=== PATIENT | male | born 1965 | race Caucasian/White ===

== ENCOUNTER 2019-08-31 20:11 | Emergency (ER) | payer MEDICAID, SELFPAY ==
[2019-08-31 20:15] VITALS: BP 153/84; PULSE 57; RESP 16; TEMP 36.5; O2SAT 99
--- NOTE | 2019-08-31 20:24 | W.ED.GENAD ---
Discharge Plan Disposition Patient Disposition: HOME Condition: Good Discharge Details Chief Complaint: Abd Prob Clinical Impression: Epigastric pain Primary Care Provider: Gualberto Dorantes ED Provider: Gene Chung [place] Meds and New Rx's Prescriptions: New lansoprazole 30 mg tablet,disintegrat, delay rel 30 mg PO DAILY Qty: 30 RF: 0 sucralfate [Carafate] 100 mg/mL suspension 10 ml PO QID Qty: 420 RF: 0 Discontinued Helen-Albia Original 325-1,916-1,000 mg Tablet, Effervescent 1 tab PO RF: 0 omeprazole 20 mg Tablet,Delayed Release (Dr/Ec) 20 mg PO PRN PRNRF: 0 Discharge Instructions Instructions: Epigastric Pain (ED) Additional Instructions: Reduce alcohol consumption as this may have something to do with your pain which is likely related to acid type disease. Please take the lansoprazole once a day. Sucralfate is 4 times a day. Follow-up with primary care in 1 to 2 weeks for reevaluation. Return to the emergency department if you develop worsening pain, vomiting, black/bloody stool, chest pain, shortness of breath, fainting. Referrals: Gualberto Dorantes [Primary Care Provider] - Medical Decision Making Patient presenting with constant epigastric abdominal pain all day today. Denies having chest pain. EKG from triage is normal. He drinks fair amount of alcohol on a daily basis and has been treated for reflux/gastritis previously. He has been on omeprazole that he restarted a couple weeks ago. Still most likely acid related. Doubt pancreatitis, hepatitis, cholecystitis. He has a benign abdomen. Will obtain labs and give IV Pepcid, p.o. Carafate, GI cocktail. Patient's laboratory studies are unremarkable. CBC is normal. Liver function normal. Lipase normal. Troponin normal. Potassium only little low at 3.4. Patient's pain resolved with the Pepcid, Carafate, GI cocktail. Discussed cutting back on his alcohol consumption. Will increase omeprazole to 40 mg a day and add Carafate. We will have him follow-up with primary care in 1 to 2 weeks. Return to ED for worsening pain, vomiting, black or bloody stool, chest pain, shortness of breath. Lab Data Lab results reviewed: Yes I reviewed the patient's lab results. ECG Data Attestation: I personally reviewed and interpreted this ECG (s) as follows: Prior ECG tracings: not available for review Interpretation: Sinus bradycardia at 58. Normal axis and intervals. No acute ST changes. HPI General Mode of arrival: ambulatory. Date/Time Provider Initiated Documentation: 08/31/19 20:23. Limitations to Documentation: no limitations. Information obtained by: patient and RN notes reviewed. HPI Narrative: Patient presents to ED with complaint of epigastric abdominal pain all day today. It seems worse tonight. He has had episodes like this previously and has been on omeprazole. He stopped it but restarted a couple weeks ago when he had another episode of epigastric discomfort. He states this feels different because it is worse and not going away. He has tried Helen-Albia as well as drinking some baking soda and water. He denies nausea/vomiting. There is no radiation of pain. There is no change in stool. He does admit to daily alcohol use. He does not smoke, use nonsteroidals or drink a lot of caffeine. Related Data Home Medications Medication Instructions Recorded Confirmed lansoprazole 30 mg PO DAILY #30 tab 08/31/19 sucralfate [Carafate] 10 ml PO QID #420 ml 08/31/19 Previous Rx's Medication Instructions Recorded lansoprazole 30 mg PO DAILY #30 tab 08/31/19 sucralfate [Carafate] 10 ml PO QID #420 ml 08/31/19 Allergies Allergy/AdvReac Type Severity Reaction Status Date / Time No Known Allergies Allergy Unverified 04/28/17 12:57 General Stated Complaint: Abd Prob JACQUELYN: 3 Review of Systems Review of Systems Narrative: As documented in HPI otherwise negative as below. Const: no fever, chills, weakness Resp: no cough, SOB, pleuritic pain CV: no CP, diaphoresis, edema, syncope GI: abdominal pain; no nausea, vomiting, diarrhea Neuro: no headache, numbness, focal weakness, confusion [facility] Medical History GERD (gastroesophageal reflux disease) (Chronic) Surgical History S/P appendectomy (Acute) Social History Smoking/Tobacco Use Status: Never Alcohol Intake: current Alcohol Intake frequency: 3 or more drinks per day Alcohol type: wine Drug use: Never Do you feel safe in your relationship?: Yes Exam Narrative Exam Narrative: Vitals: Afebrile. Mildly hypertensive otherwise normal vitals. Const: WDWN male in NAD. HEENT: NC/AT. Normal facial exam. Eyes: Normal conjunctiva and sclera. Neck: Supple. Trachea midline. Lungs: Normal respiratory effort. Lungs are clear. Cor: RRR without murmur/gallop. Good radial pulses. GI: Soft. NT/ND. No guarding or rebound. Neuro: A+O x 3. CN grossly in tact. Good strength and no focal deficit. Ext: No C/C/E. No deformity or tenderness. Skin: Warm and dry without rash. Course Vital Signs Vital signs: Vital Signs Temperature 97.7 F 08/31/19 20:15 Pulse 57 L 08/31/19 20:15 Respiratory Rate 16 08/31/19 20:15 Blood Pressure 153/84 H 08/31/19 20:15 Pulse Oximetry 99 08/31/19 20:15 Temperature 97.7 F 08/31/19 20:15 Temperature Source Tympanic 08/31/19 20:15 Pulse 57 L 08/31/19 20:15 Respiratory Rate 16 08/31/19 20:15 Blood Pressure 153/84 H 08/31/19 20:15 Blood Pressure Position Sitting 08/31/19 20:15 Pulse Oximetry 99 08/31/19 20:15 Oxygen Delivery Method Room Air 08/31/19 20:15 Oxygen Flow Rate 0 08/31/19 20:15 Pain Level 5 08/31/19 20:15
[2019-08-31] MEDS: FAMOTIDINE 20 MG/50 ML BAG 100 MG IVPB (20:56)
[2019-08-31] MEDS: Sucralfate 1 GM TAB PO (20:56)
[2019-08-31 20:58] LABS: Abs Immature Grans 0.01 k/cumm (0.0-0.09); Absolute Basophil Count 0.02 k/cumm (0.0-0.2); Absolute Eosinophil Count 0.14 k/cumm (0.0-0.7); Absolute Lymphocyte Count 1.42 k/cumm (1.2-3.4); Absolute Monocyte Count 0.68 k/cumm (0.11-0.7); Absolute Neutrophil Count 6.66 k/cumm (1.2-6.7); Basophils % 0.2; Eosinophils % 1.6; HGB 15.2 g/dL (13.5-17.5); Immature Grans % 0.1; Lymphocytes % 15.9; Mean Corp. HGB Concentration 34.5 g/dL (32.0-36.0); Mean Corpuscular Hemoglobin 31.7 pg (27.0-33.0); Mean Corpuscular Volume 91.9 fL (80-95); Mean Platelet Volume 10.5 fL (8.0-11.0); Monocytes % 7.6; Neutrophils % 74.6; Platelet Count 215 x1000/uL (130-400); RBC 4.79 m/cumm (4.50-6.00); RBC Distribution Width 12.5 % (11.8-14.1); White Blood Cell Count 8.93 k/cumm (4.4-10.8)
[2019-08-31 21:43] LABS: ALT 23 U/L (16-63); AST 13 U/L (15-37); Albumin 3.7 g/dL (3.4-5.0); Alkaline Phosphatase 48 U/L (46-116); Anion Gap 7.5 mmol/L (3-11); BUN 20 mg/dL (7-18); Bilirubin, Total 0.7 mg/dL (0.2-1.0); CO2 31.5 mmol/L (21.0-32.0); Calcium 8.4 mg/dL (8.5-10.1); Chloride 106 mmol/L (98-107); Glucose 93 mg/dL (70-100); Lipase 115 U/L (73-393); Magnesium 1.9 mg/dL (1.8-2.4); Potassium 3.4 mmol/L (3.5-5.1); Sodium 145 mmol/L (136-145); Total Protein 6.9 g/dL (6.4-8.2); Troponin I < 0.05 ng/mL (0.00-0.06)
== END 2019-08-31 22:11 | disposition home or self-care (01) ==
PROVIDERS: Emergency Provider Emergency Medicine; PCP Specialist/Technologist Athletic Trainer
DX: R10.13 Epigastric pain (principal)
CPT/HCPCS: 36415; 80053; 83690; 93005; 96365; 99284; 83735; 84484; 85025; 93010

== ENCOUNTER 2019-09-10 11:49 | Emergency (ER) | payer MEDICAID, SELFPAY ==
[2019-09-10 11:53] VITALS: BP 147/88; PULSE 59; RESP 18; TEMP 36.5; O2SAT 99
--- NOTE | 2019-09-10 12:53 | ED.GENADUL_ITS ---
Discharge Plan Disposition Patient Disposition: HOME Condition: Stable Discharge Details Chief Complaint: Abd Prob Clinical Impression: Epigastric pain Primary Care Provider: Gualberto Dorantes ED Provider: Bethany Delatorre Home Meds and New Rx's Prescriptions: New Lidocaine Viscous 2 % solution 1 applic MM BID PRN (Reason: pain) Qty: 15 RF: 0 Continued lansoprazole 30 mg tablet,disintegrat, delay rel 30 mg PO DAILY Qty: 30 RF: 0 sucralfate [Carafate] 100 mg/mL suspension 10 ml PO QID Qty: 420 RF: 0 Discharge Instructions Instructions: Diet for Stomach Ulcers and Gastritis (ED), Epigastric Pain (ED) Additional Instructions: Continue to follow dietary recommendations, test's recommendations for dietary advancement. Please keep upcoming appointment with general surgery, call on Thursday to see if this may be moved up as some possible. Please continue the medications. Please try to avoid offending agents to help prevent recurrence of your pains. I have prescribed a one-time dose of viscous lidocaine to use if you have severe symptoms once again. You may use this with Mylanta. You may not use this more than once a day. If you develop chest pain, shortness of breath, difficulty breathing, fevers or other new/worsening symptoms please seek care urgently once again. Referrals: Gualberto Dorantes [Primary Care Provider] - Discharge Data Discharge Date/Time-TO BE ENTERED AT DEPARTURE: 09/10/19 13:27 Medical Decision Making Patient is a 53-year-old male with history of GERD presents today with chief complaint of epigastric pain. Patient was seen here [phone] for the exact same pain. Was evaluated by Dr. Chung and was determined to have epigastric discomfort, thought to be associated with dietary intake of alcohol and black coffee on empty stomach. Patient reports that he is been following the brat diet since being discharged from here. States that largely, his pain completely subsided. However, he was with friends last night had multiple glasses of wine woke up this morning had black coffee. He reports this greatly exacerbated his discomfort. He has been experiencing 5 out of 10 epigastric pain since that time. Is requesting a GI cocktail. Reports that he had this when he was here last and has had complete resolution of the symptoms. Is also requesting if to have viscous lidocaine prescribed as he is able to purchase the Mylanta but not the viscous lidocaine. He does seem like a reasonable gentleman will use this as prescribed. He will stick with the dietary recommendations. We did discuss that he may advance his diet away from just the solitary BRAT diet that he has been following but that should not include greatly exacerbating substances such as black coffee or alcohol. On exam, patient is resting comfortably. No peritoneal findings on exam. To the palpation of the epigastric area actually improves his symptoms. He is not tachycardic, afebrile. He does not sound to have any evidence of cardiovascular sources is not exertional at all and was purely brought on by drinking coffee while driving this morning. This does seem to be an exacerbation of his underlying GERD. We will give his GI cocktail as requested. I will prescribe 1 other dose of viscous lidocaine that he may use with Mylanta if needed. Patient Jd has a referral to general surgery, he will call them Thursday to try to schedule appointment as soon as possible. We discussed new/worsening symptoms when he should seek care urgently once again. All his questions and concerns were addressed and he is in agreement with this plan peer HPI General Mode of arrival: ambulatory . Date/Time Provider Initiated Documentation: 09/10/19 12:26 . Limitations to Documentation: no limitations . Information obtained by: patient and RN notes reviewed . History of Present Illness 53 year old M presents to the emergency department with the chief complaint of Epigastric pain, described as moderate and similar to prior episodes, with intensity rated at 5. Quality is described as burning, and is localized to the abdomen. Patient reports no radiation. Patient started experiencing this hour(s) and it has been constant. No relieving factors improve symptom(s), Eating worsens symptoms (Drink wine last night which initially exacerbated, coffee this morning increased) . Patient notes no other symptoms.. Patient did receive the following treatments prior to arrival, none Related Data Home Medications Medication Instructions Recorded Confirmed lansoprazole 30 mg PO DAILY #30 tab 08/31/19 09/10/19 sucralfate [Carafate] 10 ml PO QID #420 ml 08/31/19 09/10/19 lidocaine HCl [Lidocaine Viscous] 1 applic MM BID PRN #15 ml 09/10/19 Previous Rx's Medication Instructions Recorded lansoprazole 30 mg PO DAILY #30 tab 08/31/19 sucralfate [Carafate] 10 ml PO QID #420 ml 08/31/19 lidocaine HCl [Lidocaine Viscous] 1 applic MM BID PRN #15 ml 09/10/19 Allergies Allergy/AdvReac Type Severity Reaction Status Date / Time No Known Allergies Allergy Unverified 04/28/17 12:57 General Stated Complaint: Abd Prob JACQUELYN: 4 Review of Systems Constitutional Constitutional: Reports as per HPI, Denies chills, Denies fatigue, Denies fever(s) and Denies headache(s) ENT Ears, Nose, Mouth, and Throat: Denies headache(s) Cardiovascular Cardiovascular: Reports as per HPI, Denies chest pain and Denies dyspnea Respiratory Respiratory: Reports as per HPI, Denies cough and Denies dyspnea Gastrointestinal Gastrointestinal: Reports as per HPI Genitourinary Genitourinary: Denies system reviewed and no additional complaints, except as docu (patient denies any change in urinary habits) Musculoskeletal Musculoskeletal: Reports as per HPI and Denies back pain Integumentary/Breasts Skin/Breast: Reports as per HPI and Denies rash Neurologic Neurologic: Reports as per HPI and Denies headache(s) Endocrine Endocrine: Denies fatigue [facility] Medical History GERD (gastroesophageal reflux disease) (Chronic) Surgical History S/P appendectomy (Acute) Social History Smoking/Tobacco Use Status: Never Alcohol Intake: current Alcohol Intake frequency: 3 or more drinks per day Alcohol type: wine Drug use: Never Do you feel safe in your relationship?: Yes Exam Const General: cooperative, healthy appearing, comfortable, no acute distress and well developed Nutritional Appearance: average body habitus and well nourished Orientation: alert and awake [facility] Head: normal to inspection Mouth: moist mucous membranes Resp Effort & Inspection: normal respiratory effort, able to speak in complete sentences and no respiratory distress Auscultation: clear to auscultation bilaterally, no rales, no rhonchi and no wheezes Cardio Rate: regular rate Rhythm: regular rhythm Heart Sounds: S1 normal and S2 normal GI Inspection: normal to inspection, no edema and non-distended Palpation: soft, no hepatosplenomegaly, not firm, no guarding, not rigid and nontender (Palpation over the epigastric region improves his discomfort) Percussion: normal to percussion Auscultation: normal bowel sounds Back/Spine/Pelvis Back: no CVA tenderness Skin General skin exam: no rashes or lesions noted Trauma: no lacerations or abrasions Neuro General: alert and awake Cognition: normal cognition Speech: speech normal Gait: normal gait Psych Appearance: grossly normal and well kempt Mental Status: mental status grossly normal Speech and Movement: speech and movement normal Course Vital Signs Vital signs: Vital Signs Temperature 36.5 C 09/10/19 11:53 Pulse 59 L 09/10/19 11:53 Respiratory Rate 18 09/10/19 11:53 Blood Pressure 147/88 H 09/10/19 11:53 Pulse Oximetry 99 09/10/19 11:53 Temperature 36.5 C 09/10/19 11:53 Temperature Source Skin 09/10/19 11:53 Pulse 59 L 09/10/19 11:53 Respiratory Rate 18 09/10/19 11:53 Respiratory Effort Non-Labored 09/10/19 11:58 Blood Pressure 147/88 H 09/10/19 11:53 Blood Pressure Position Sitting 09/10/19 11:53 Pulse Oximetry 99 09/10/19 11:53 Oxygen Delivery Method Room Air 09/10/19 11:53 Oxygen Flow Rate 0 09/10/19 11:53 Pain Level 5 09/10/19 11:53
== END 2019-09-10 13:27 | disposition home or self-care (01) ==
PROVIDERS: Emergency Provider Physician Assistant; PCP Specialist/Technologist Athletic Trainer
DX: R10.13 Epigastric pain (principal)
CPT/HCPCS: 99283

== ENCOUNTER 2019-09-12 21:43 | Emergency (ER) | payer MEDICAID, SELFPAY ==
[2019-09-12] VITALS (14 sets, daily range): BP systolic 114–144; BP diastolic 84–91; PULSE 53–60; RESP 13–23; TEMP 36.6; O2SAT 95–99
--- NOTE | 2019-09-12 22:27 | ED.GENADUL_ITS ---
Discharge Plan Disposition Patient Disposition: HOME Condition: Stable Discharge Details Chief Complaint: Abd Prob Clinical Impression: Epigastric abdominal pain Primary Care Provider: Gualberto Dorantes ED Provider: Syeda Morton Home Meds and New Rx's Prescriptions: Continued lansoprazole 30 mg tablet,disintegrat, delay rel 30 mg PO DAILY Qty: 30 RF: 0 sucralfate [Carafate] 100 mg/mL suspension 10 ml PO QID Qty: 420 RF: 0 Discontinued Lidocaine Viscous 2 % solution 1 applic MM BID PRN (Reason: pain) Qty: 15 RF: 0 Discharge Instructions Instructions: Epigastric Pain (ED) Additional Instructions: Continue your Prevacid as directed. Use the GI cocktail as needed and directed. Call general surgery tomorrow morning to schedule follow-up for reevaluation. Return immediately to the emergency department if you develop any worsening or new concerning symptoms such as fever, chest pain, shortness of breath, dizziness, vomiting or worsening pain. Referrals: Alethea Ohara MD [ [facility] STAFF PHYSICIAN] - Alice Aguirre MD [ [facility] STAFF PHYSICIAN] - Karyn Chapa DO [OSTEOPATHIC DOCTOR] - Discharge Data Discharge Physician: Syeda Morton Medical Decision Making 53yo M with a history of GERD for the past 3 years on Carafate and Prevacid who presents with dull aching epigastric pain since this afternoon. Denies fever, cough, chest pain, sob, vomiting, dizziness. He was seen here last week for the same complaint and had lab work which was unremarkable and then returned here 2 days ago requesting a GI cocktail. He states he has plans to follow-up with surgery for EGD. He states he came here tonight due to no relief with 1 dose of lidocaine viscous given here 2 days ago and is requesting a GI cocktail and a dose of Pepcid and any assistance with obtaining an EGD as soon as possible. He is declining any lab work or additional work-up. His presentation does not appear consistent with cardiac as he has had ongoing epigastric pain for the past 3 years that is worse with food, coffee and alcohol and better with certain positions. Vitals within normal limits. An EKG was done on arrival and notes a rate of 53, sinus with no acute ST-T wave ischemic changes. We will give him 1 dose of GI cocktail and Pepcid and reassess. 2315 --patient states he feels better and would like to go home to sleep. He again was offered any further work-up but is declining. He was placed on care management list to help arrange for a follow-up appointment with surgery to help with consultation. He is advised to avoid triggers for his epigastric pain including avoiding alcohol, caffeine, spicy foods, peppermint and chocolate. He is advised to return here with any concerns. Medical Records Medical records reviewed: Yes I reviewed the patient's medical records. ECG Data Attestation: I personally reviewed and interpreted this ECG (s) as follows: Interpretation: Rate of 53, sinus, no acute ST elevation or depression. MI 148. QTc 402. QRS 96. HPI General Mode of arrival: ambulatory . Date/Time Provider Initiated Documentation: 09/12/19 21:47 . Limitations to Documentation: no limitations . Information obtained by: patient . HPI Narrative: Pt is a 53yo M with a history of GERD on Carafate and Prevacid who presents to the ED w/ a complaint of constant dull aching epigastric pain since this afternoon. Patient states he has had this pain off and on for the past 3 years which is worse with coffee, alcohol and certain foods. He states he has taken Prilosec in the past with relief. He states he was seen here on 08/31 for similar presentation and had lab work-up which was negative and he was diagnosed with a likely ulcer and advised to follow-up with surgery. Patient states he has seen his primary care doctor and is planning to see surgery with plans for an EGD soon. He was seen here 2 days ago with worsening of his symptoms after drinking alcohol the night before and coffee on an empty stomach and was only requesting a GI cocktail at at that time. He received this medication and felt much better and went home. He states he ran out of his Carafate and then developed pain today and denied any relief with the lidocaine dose he was given. He states he also took an old dose of Mylanta. He states he would just like a GI cocktail and a dose of Pepcid here today. He is declining any further work-up or lab work or imaging. He would also like assistance with help with obtaining an EGD soon as possible. He denies fever, cough, chest pain, shortness of breath, vomiting, dizziness, leg pain or swelling, recent travel or recent surgery. Related Data Home Medications Medication Instructions Recorded Confirmed lansoprazole 30 mg PO DAILY #30 tab 08/31/19 09/12/19 sucralfate [Carafate] 10 ml PO QID #420 ml 09/12/19 Previous Rx's Medication Instructions Recorded lansoprazole 30 mg PO DAILY #30 tab 08/31/19 sucralfate [Carafate] 10 ml PO QID #420 ml 09/12/19 Allergies Allergy/AdvReac Type Severity Reaction Status Date / Time No Known Allergies Allergy Unverified 09/12/19 21:57 General Stated Complaint: Abd Prob JACQUELYN: 2 Review of Systems Review of Systems ROS Unobtainable: All systems reviewed & are unremarkable except as noted in HPI and below Constitutional Constitutional: Reports as per HPI, Denies chills and Denies fever(s) Eyes Eyes: Denies blurry vision ENT Ears, Nose, Mouth, and Throat: Denies dizziness, Denies sore throat and Denies throat swelling Cardiovascular Cardiovascular: Denies chest pain and Denies dyspnea Respiratory Respiratory: Denies cough and Denies dyspnea Gastrointestinal Gastrointestinal: Reports abdominal pain, Denies diarrhea and Denies vomiting Genitourinary Genitourinary: Denies hematuria and Denies dysuria Musculoskeletal Musculoskeletal: Denies back pain and Denies numbness Integumentary/Breasts Skin/Breast: Denies lesions and Denies rash Neurologic Neurologic: Denies dizziness, Denies focal weakness and Denies numbness Allergic/Immunologic Allergic/Immunologic: Denies throat swelling [facility] Medical History GERD (gastroesophageal reflux disease) (Chronic) Surgical History S/P appendectomy (Acute) Social History Smoking/Tobacco Use Status: Never Alcohol Intake: current Alcohol Intake frequency: 3 or more drinks per day Alcohol type: wine Drug use: Never Details: pt states that he has not had any alcohol in the last in the last 3 days Do you feel safe in your relationship?: Yes Exam Const General: cooperative, healthy appearing and no acute distress HENWI Head: normal to inspection Face and sinus: normal facial exam Eyes General: appearance normal, both eyes and all related structures EOM: EOM intact bilaterally Neck Neck: normal visual inspection and No submandibular swelling Lymphatic: no lymphadenopathy noted Chest Chest: normal inspection of the chest and no tenderness Resp Effort & Inspection: normal respiratory effort and able to speak in complete sentences Auscultation: clear to auscultation bilaterally Cardio Rate: regular rate Rhythm: regular rhythm GI Inspection: normal to inspection Palpation: soft, not firm, not rigid and tender (very minimal epigastric) Auscultation: normal bowel sounds Back/Spine/Pelvis Pelvis: no pain with anterior-posterior compression Skin General skin exam: no rashes or lesions noted Neuro General: alert, awake and oriented x3 Cognition: normal cognition Speech: speech normal Motor: muscle tone normal throughout Sensory Exam: no sensory deficits noted Extrem General: normal to inspection, full ROM, normal capillary refill, no calf tenderness bilaterally and no edema Psych Appearance: grossly normal Mental Status: mental status grossly normal Speech and Movement: speech and movement normal Affect: normal affect Course Vital Signs Vital signs: Vital Signs Temperature 97.9 F 09/12/19 21:50 Pulse 60 09/12/19 21:50 Respiratory Rate 16 09/12/19 21:50 Blood Pressure 114/91 H 09/12/19 21:50 Pulse Oximetry 98 09/12/19 21:50 Temperature 97.9 F 09/12/19 21:50 Temperature Source Temporal Artery Scan 09/12/19 21:50 Pulse 60 09/12/19 21:50 Respiratory Rate 16 09/12/19 21:50 Respiratory Effort 09/12/19 22:01 Blood Pressure 114/91 H 09/12/19 21:50 Pulse Oximetry 98 09/12/19 21:50 Oxygen Delivery Method Room Air 09/12/19 21:50 Oxygen Flow Rate 0 09/12/19 21:50 Pain Level 6 09/12/19 21:50
[2019-09-12] MEDS: FAMOTIDINE 20 MG/50 ML BAG 200 MG IVPB (22:35)
--- NOTE | 2019-09-13 07:46 | NUR.NOTE ---
Nursing Note: referral fax to general surgery.
== END 2019-09-12 23:30 | disposition home or self-care (01) ==
PROVIDERS: Emergency Provider Physician Assistant; PCP Specialist/Technologist Athletic Trainer
DX: R10.13 Epigastric pain (principal)
CPT/HCPCS: 93005; 96374; 99284; 93010

== ENCOUNTER 2019-09-16 11:12 | Day surgery (SDC) | payer MEDICAID, SELFPAY ==
[2019-09-16 11:29] VITALS: BP 118/76; PULSE 61; RESP 17; TEMP 36.4; O2SAT 98
[2019-09-16] MEDS: Lactated Ringers 1,000 ML 80 ML IV (12:01)
--- NOTE | 2019-09-16 12:09 | W.PM.DSUDISC ---
Discharge Plan Disposition Patient Disposition: HOME Condition: Good Discharge Details Reason For Visit: EPIGASTRIC PAIN Attending Provider: Alethea Ohara Primary Care Provider: Gualberto Dorantes Home Meds and New Rx's Prescriptions: No Action lansoprazole 30 mg tablet,disintegrat, delay rel 30 mg PO DAILY Qty: 30 RF: 0 sucralfate [Carafate] 100 mg/mL suspension 10 ml PO QID Qty: 420 RF: 0 Discharge Instructions Additional Instructions: Findings: Your EGD and colonoscopy were normal. My office will contact you with routine biopsy results. Follow up: My office will schedule a gallbladder ultrasound. Please call if you develop: fevers >101.5 Nausea or Vomiting Abdominal pain that is not transient DAY SURGERY UNIT POST COLONOSCOPY INSTRUCTIONS 1. Because there will be medication in your system for the next 24 hours, you may feel a little sleepy. Your coordination will be affected. Therefore: a. Do not drive or operate dangerous equipment for 24 hours. b. Do not drink alcohol beverages for 24 hours (not even beer). c. Plan to go home and rest for the day. 2. Generally there are no restrictions on your activity after a day or so has gone by, but you may feel a bit fatigued for a few days. 3 After you arrive home you may have a light meal and return to a normal diet as you can tolerate it without feeling sick to your stomach. 4. After surgery, you may feel pain or discomfort. This should be only transient, but if it persists please contact your doctor. 5. If there are any questions regarding the findings of your procedure, please feel free to contact your doctor. 6. If you are unable to contact your doctor with a problem, contact the hospital at [phone]. 7. Continue all your regular medications unless directed otherwise. I understand the above instructions and have no questions. Signature of Patient or Responsible Adult Escort Date/Time Name of Responsible Adult Escort Signature of Nurse Date/Time Activity:: Activity as Tolerated Diet:: As Tolerated Discharge Orders Discharge Orders: Discharge Order (Routine); Ordered 09/16/19 Ordered By: Alethea Ohara DS: Diagnosis Discharge Diagnosis (1) Normal colonoscopy: Status: Acute
--- NOTE | 2019-09-16 12:25 | STOM_PTH ---
PATIENT: Suraj Beck LOC: [facility] U#:[id number] AGE/SX: 53/M ROOM: RE09/16/[address]: Alethea Ohara MD : 1965 BED: DIS: 09/16/2019 SPEC #: [id number] RECD: 09/16/19 17:56 STATUS: PITER REQ #: [id number] NIA: 09/16/19 12:[address]: Alethea Ohara DEPT: Surgical Specimen RECD BY: Chiara Garrett ENTERED: 09/16/19 17:56 SP TYPE: STOMACH OTHR DR: Gualberto Dorantes Tissues: 1 - BIOPSY BOWEL 2 - STOMACH BIOPSY Procedures: GROSS AND MICRO LEVEL 4 Comments: [id number]
[2019-09-16 13:35] VITALS: BP 123/77; PULSE 58; RESP 16; TEMP 36; O2SAT 99
--- NOTE | 2019-09-21 06:49 | ENDO_ITS ---
REPORT OF OPERATIVE PROCEDURES DATE OF PROCEDURE September 16, 2019 PREOPERATIVE DIAGNOSES 1. Epigastric pain. 2. Colon screening. POSTOPERATIVE DIAGNOSES 1. Normal EGD. 2. Normal colon. PROCEDURES 1. EGD with biopsies. 2. Colonoscopy. SURGEON Alethea Ohara M.D. ANESTHESIA General. INDICATIONS This is a 53-year-old man who reports postprandial epigastric pain. He has resumed his proton pump in hibitor. He notes some variable benefit with a GI cocktail. He has not had a previous EGD or colonosc opy. He does not have any first-degree relatives with colon cancer. PROCEDURE DESCRIPTION He was placed in the left lateral decubitus position. Propofol was titrated to sedation. The scope wa s advanced into the esophagus under direct visualization and passed down into the stomach and the duo denum. There was no duodenitis or ulcers noted. Biopsies were taken from the second portion of the duodenum to evaluate for celiac disease. The stoma ch itself appeared normal, including on retroflexed view of the fundus and the lesser curvature. Newton om biopsies were taken from the gastric antrum to evaluate for H. pylori. The GE junction exhibited n o masses, Renee's, inflammation or strictures. The air was suctioned from the stomach and the scope withdrawn with no other esophageal lesions noted. Digital rectal examination revealed no abnormalities. The scope was advanced to the cecum without dif ficulty. The ileocecal valve and appendiceal orifice were clearly identified. His prep was excellent. The scope was slowly withdrawn with no abnormalities seen within the ascendin g, transverse, descending, sigmoid colon or rectum, including on retroflexed view. He tolerated the p rocedure well and was stable to Recovery. He will need a followup screening colonoscopy again in 10 years, or sooner if symptoms indicate. We w ill schedule a gallbladder ultrasound for further evaluation. CC: Gualberto Dorantes M.D.
== END 2019-09-16 14:04 | disposition home or self-care (01) ==
PROVIDERS: PCP Specialist/Technologist Athletic Trainer; Visit Provider Surgery
PROC: (CPT 43239; principal; 2019-09-16 11:15)
DX: Z12.11 Encounter for screening for malignant neoplasm of colon (principal); R10.13 Epigastric pain; K29.50 Unspecified chronic gastritis without bleeding; K21.9 Gastro-esophageal reflux disease without esophagitis
CPT/HCPCS: 43239; 45378; 88305

== ENCOUNTER 2019-09-21 00:39 | Outpatient (CLI) | payer MEDICAID, SELFPAY ==
--- NOTE | 2019-09-21 06:50 | DI.US_ITS ---
EXAM: US ABDOMEN CLINICAL HISTORY: RUQ ABD PAIN, R10.11 TECHNIQUE: Ultrasound performed using standard protocol. COMPARISON: No exams were available for comparison FINDINGS: The proximal aorta is not visualized. The mid and distal segments appear unremarkable. The vena cav a is intact. The liver is normal. The portal vein is intact. There is no evidence of a Sanchez's sig n. The gallbladder wall is 4.9 mm thick and an echogenic focus in the gallbladder would be consistent with a gallstone. There is no pericholecystic fluid. The common duct caliber is 5 mm. Limited visu alization of the pancreas is identified. There is no gross abnormality. There is mild splenomegaly. The kidneys are unremarkable. There is no evidence of free fluid. IMPRESSION: A large gallstone is identified in the gallbladder which is contracted. The gallbladder wall measurin g up to 4.9 mm. There are no acoustical findings to suggest acute cholecystitis.
== END 2019-09-21 00:59 ==
PROVIDERS: PCP Specialist/Technologist Athletic Trainer; Visit Provider Surgery
DX: R10.11 Right upper quadrant pain (principal); K80.70 Calculus of gallbladder and bile duct without cholecystitis without obstruction
CPT/HCPCS: 76700

== ENCOUNTER 2019-09-27 07:01 | Day surgery (SDC) | payer MEDICAID, SELFPAY ==
[2019-09-27] VITALS (7 sets, daily range): BP systolic 118–140; BP diastolic 71–90; PULSE 57–66; RESP 11–16; TEMP 36.2–36.5; O2SAT 96–100
[2019-09-27] MEDS: Lactated Ringers 1,000 ML 80 ML IV ×2 (08:06→10:23)
--- NOTE | 2019-09-27 09:04 | W.PM.DSUDISC ---
Discharge Plan Disposition Patient Disposition: HOME Condition: Good Discharge Details Reason For Visit: CHOLELITHIASIS Attending Provider: Alethea Ohara Primary Care Provider: Gualberto Dorantes Home Meds and New Rx's Prescriptions: New hydrocodone-acetaminophen 5-325 mg Tablet 1 - 2 tab PO Q6H PRN (Reason: Pain) Qty: 15 RF: 0 Discharge Instructions Additional Instructions: The top bandage can be removed tomorrow. The steri strips will usually stick for about a week. When the edges start to curl up, they can be removed. It is okay to shower tomorrow, the water can run over the steri strips Do not swim or soak in a tub for two weeks Call for any concerns including fever, increased pain, vomiting, incision redness or drainage. Do not lift more than 15 pounds for two weeks. Walking and stairs are fine. Do not drive if on narcotic pain meds or if limited by pain. May use Tylenol alternating with ibuprofen for pain control. Ice is also an option. The maximum dose for Tylenol is 4000 mg/day. May use ibuprofen 800 mg every 8 hours as needed. If concerned about constipation, you may use a stool softener or milk of magnesia. Referrals: Alethea Ohara MD [ [facility] STAFF PHYSICIAN] - (Return for a postop visit in 10-14 days) Activity:: Do not lift more than 15# Remove Dressings/Wound Care:: 24 hours Shower/Bathe:: 24 hours Diet:: Low fat for two weeks, then gradually resume a normal diet Discharge Orders Discharge Orders: Discharge Order (Routine); Ordered 09/27/19 Ordered By: Alethea Ohara DS: Diagnosis Discharge Diagnosis (1) Cholelithiasis: Status: Acute
[2019-09-27] MEDS: ceFAZolin 2 GM/50 ML BAG IVPB (09:30)
--- NOTE | 2019-09-27 10:12 | GB_PTH ---
PATIENT: Suraj Beck LOC: [facility] U#:[id number] AGE/SX: 53/M ROOM: RE09/27/[address]: Alethea Ohara MD : 1965 BED: DIS: 09/27/2019 SPEC #: [id number] RECD: 09/27/19 12:53 STATUS: PITER REQ #: [id number] NIA: 09/27/19 10:[address]: Alethea Ohara DEPT: Surgical Specimen RECD BY: Chiara Garrett ENTERED: 09/27/19 12:53 SP TYPE: GB OTHR DR: Gualberto Dorantes Tissues: 1 - GALLBLADDER Procedures: GROSS AND MICRO LEVEL 3 Comments: [id number]
[2019-09-27] MEDS: HYDROcodone 5/Acetaminophen 325 TAB PO (11:34)
--- NOTE | 2019-09-27 16:22 | ROE_ITS ---
DATE OF PROCEDURE: September 27, 2019 PREOPERATIVE DIAGNOSIS: Symptomatic cholelithiasis. POSTOPERATIVE DIAGNOSIS: Same. PROCEDURE: Laparoscopic cholecystectomy. SURGEON: Alethea Ohara M.D. ANESTHESIA: Local and general. INDICATIONS: This is a 53-year-old man with epigastric mccarty that is postprandial and can last for fernando rs. He recently had a normal EGD and colonoscopy. Gallbladder ultrasound showed stones. PROCEDURE: He was placed supine on the operating table and after induction of general anesthetic had his abdomen prepped and draped sterilely. A 5 mm incision was made to the left of the umbilicus aft er injecting local anesthetic. The abdomen was entered directly using a 5 mm port and scope. A CO2 pneumoperitoneum was begun and he was placed in reverse Trendelenburg position. The epigastric and t wo lateral ports were placed after injecting local anesthetic under direct visualization. The gallbl adder was somewhat contracted. It had a chronically-thickened wall but was not acutely inflamed. Th e fundus was pulled up over the liver and the infundibulum retracted laterally. Hook cautery was use d to take down the peritoneum overlying the triangle of Calot. The cystic duct was isolated and visu alized going directly onto the gallbladder. This was slightly dilated. I clearly identified the com mon bile duct and had a critical view of the cystic duct going onto the gallbladder. I attempted usi ng the large clips which came across most of the duct with the exception of a millimeter or so. I th erefore decided to divide the cystic duct with the laparoscopic stapler using the vascular load. I h ad palpated the cystic duct prior to firing and there were no stones within the duct that were palpab le. A few branches of the cystic artery were clipped twice proximally and once distally and divided. The gallbladder was then dissected off the liver bed with hook cautery. A vascular branch within t he gallbladder fossa was clipped. Once the gallbladder was removed, the operative site was inspected with no evidence of bleeding or bile leak. The gallbladder was removed through the epigastric incis ion in an EndoCatch bag. The ports were removed with no evidence of bleeding and the CO2 released o ut of the umbilical port. The skin at all port sites was closed with a #4-[address] itch. He tolerated the procedure well and was stable to recovery.
== END 2019-09-27 13:21 | disposition home or self-care (01) ==
PROVIDERS: PCP Specialist/Technologist Athletic Trainer; Visit Provider Surgery
PROC: 0FT44ZZ Resection of Gallbladder, Percutaneous Endoscopic Approach (ICD-10-PCS; CPT 47562; principal; 2019-09-27 09:00)
DX: K81.1 Chronic cholecystitis (principal); K21.9 Gastro-esophageal reflux disease without esophagitis
CPT/HCPCS: 47562; 88304; J0690; J1885; J2405; J3010

== ENCOUNTER 2019-11-11 10:07 | Inpatient (IN) | payer MEDICAID, SELFPAY ==
[2019-11-11 10:09] VITALS: BP 144/96; PULSE 66; RESP 18; TEMP 36.7; O2SAT 99
--- NOTE | 2019-11-11 10:23 | W.ED.GENAD ---
Discharge Plan Disposition Patient Disposition: [facility] INPATIENT Condition: Stable Discharge Details Chief Complaint: Abd Prob Clinical Impression: Common bile duct calculus Primary Care Provider: Gualberto Dorantes ED Provider: Ivan Verma Home Meds and New Rx's Prescriptions: No Action No Known Home Meds RF: 0 Medical Decision Making 53-year-old male presents from home with the abrupt onset of epigastric pain that radiates to his back. It began after eating last night and again this morning. He states that similar to gallbladder colic pain that he had prior to cholecystectomy at the end of August. He is afebrile and vital signs are normal, he is quite tender in the epigastrium. Presentation may be secondary to gastritis, must exclude bile leak or retained stone. Patient given GI cocktail, screening labs obtained, patient referred for CT images. CBC reveals a white blood cell count of 7, hematocrit 45, platelets 249. Chemistries reassuring, but note of AST 72, ALT 80, normal lipase. Total bili is 1.0. CT images reveal a 4 mm stone at the head of the pancreas/common bile duct. See formal report. Case discussed with Dr Mehta of [facility] Gastroenterology. Dr Kulkarni, [facility]. Dr Mehta recommends admission to the hospital for observation, surveillance of labs, plan for down and back ERCP on Thursday which the GI department will arrange. Discussed with the patient who agrees to the recommended plan. The gastroenterology lab called back, requested fax of records to [phone] (done). They stated that the procedure would occur Thursday approximately 1 PM and the patient have an anticipated arrival for 11:30 AM. [facility] asked that report be called to [phone] on Thursday morning. ECG Data Attestation: I personally reviewed and interpreted this ECG (s) as follows: Interpretation: Normal sinus rhythm, rate is 66, QRS is narrow, no ST segment elevation present. HPI General Mode of arrival: ambulatory. Date/Time Provider Initiated Documentation: 11/11/19 10:08. Limitations to Documentation: no limitations. Information obtained by: patient. History of Present Illness 53 year old M presents to the emergency department with the chief complaint of Epigastric pain, described as similar to prior episodes, Quality is described as constant, and is localized to the abdomen. Patient reports radiation to back. Patient started experiencing this hour(s) and it has been constant. Eating worsens symptoms . Patient notes no other symptoms.. Patient did receive the following treatments prior to arrival, none Related Data Home Medications Medication Instructions Recorded Confirmed Unknown [No Known Home Meds] 11/11/19 11/11/19 Allergies Allergy/AdvReac Type Severity Reaction Status Date / Time No Known Allergies Allergy Unverified 11/11/19 10:16 General Stated Complaint: Abd Prob JACQUELYN: 3 Review of Systems Narrative: 10 to 15 minutes of pain last night. Recurrent again this morning after coffee and a donut. No vomiting. No fever. He states that he has otherwise been well since operation on September 27. FOR[facility]LY [facility], [facility] Medical History Cholelithiasis (Resolved) GERD (gastroesophageal reflux disease) (Chronic) Surgical History S/P appendectomy (Acute) S/P laparoscopic cholecystectomy (Acute ~09/16/19) Social History Smoking/Tobacco Use Status: Never Alcohol Intake: current Alcohol Intake frequency: 3 or more drinks per day Alcohol type: wine Drug use: Never Current gender identity: male Do you feel safe at home: Yes Do you feel safe in your relationship?: Yes Exam Narrative Exam Narrative: GEN: awake, alert, oriented 3. Pleasant, well groomed, interactive. HEAD: Normocephalic, atraumatic ENT: Mucous membranes moist, oropharynx unremarkable, External ear exam unremarkable EYES: PERRL, EOMI NECK: Full ROM, no HUEY, no menigismus CHEST/RESP: Nontender, clear to auscultation bilateral, no wheeze/rhonchi/rales CARDIOVASCULAR: RRR, no murmur, rub mayuri. 2+ Rad pulse bilateral ABDOMEN: Soft, tender in the epigastrium, no significant right upper quadrant tenderness, no rebound present, no mass. Healing laparoscopic incisions. +Bowel sounds EXT: Full ROM, no edema, no rash Neuro: Grossly normal neurologic exam, conversant, interactive. Psych: Speech fluent, thoughts congruent, affect normal Course Vital Signs Vital signs: Vital Signs Temperature 36.7 C 11/11/19 10:09 Pulse 66 11/11/19 10:09 Respiratory Rate 18 11/11/19 10:09 Blood Pressure 144/96 H 11/11/19 10:09 Pulse Oximetry 99 11/11/19 10:09 Temperature 36.7 C 11/11/19 10:09 Temperature Source Skin 11/11/19 10:09 Pulse 66 11/11/19 10:09 Respiratory Rate 18 11/11/19 10:09 Respiratory Effort Non-Labored 11/11/19 10:16 Blood Pressure 144/96 H 11/11/19 10:09 Blood Pressure Position Sitting 11/11/19 10:09 Pulse Oximetry 99 11/11/19 10:09 Oxygen Delivery Method Room Air 11/11/19 10:09 Oxygen Flow Rate 0 11/11/19 10:09 Pain Level 4 11/11/19 10:09
[2019-11-11] MEDS: Normal Saline 500 ML 1000 ML IV ×2 (10:38→15:22)
[2019-11-11] MEDS: Ondansetron 4 MG/2 ML VIAL IVP (10:39)
[2019-11-11 10:59] LABS: Abs Immature Grans 0.02 k/cumm (0.0-0.09); Absolute Basophil Count 0.02 k/cumm (0.0-0.2); Absolute Eosinophil Count 0.11 k/cumm (0.0-0.7); Absolute Lymphocyte Count 1.61 k/cumm (1.2-3.4); Absolute Monocyte Count 0.62 k/cumm (0.11-0.7); Absolute Neutrophil Count 4.64 k/cumm (1.2-6.7); Basophils % 0.3; Eosinophils % 1.6; HCT 45.5 % (40.0-50.0); HGB 15.4 g/dL (13.5-17.5); Immature Grans % 0.3; Lymphocytes % 22.9; Mean Corp. HGB Concentration 33.8 g/dL (32.0-36.0); Mean Corpuscular Hemoglobin 29.7 pg (27.0-33.0); Mean Corpuscular Volume 87.7 fL (80-95); Mean Platelet Volume 10.3 fL (8.0-11.0); Monocytes % 8.8; Neutrophils % 66.1; Platelet Count 249 x1000/uL (130-400); RBC 5.19 m/cumm (4.50-6.00); RBC Distribution Width 12.6 % (11.8-14.1); White Blood Cell Count 7.02 k/cumm (4.4-10.8)
[2019-11-11 11:44] LABS: ALT 80 U/L (16-63); AST 72 U/L (15-37); Albumin 3.6 g/dL (3.4-5.0); Alkaline Phosphatase 51 U/L (46-116); Anion Gap 7.3 mmol/L (3-11); BUN 16 mg/dL (7-18); CO2 26.7 mmol/L (21.0-32.0); CREATININE 0.86 mg/dL (0.70-1.30); Calcium 8.2 mg/dL (8.5-10.1); Chloride 109 mmol/L (98-107); Glucose 104 mg/dL (74-106); Lipase 100 U/L (73-393); Potassium 4.1 mmol/L (3.5-5.1); Sodium 143 mmol/L (136-145); Total Protein 6.9 g/dL (6.4-8.2)
[2019-11-11 11:45] LABS: Troponin I < 0.05 ng/Ml (<0.06)
[2019-11-11] MEDS: Omnipaque 350 MG/ML 100 ML BTL IJ (11:55)
--- NOTE | 2019-11-11 11:58 | DI.CT_ITS ---
EXAM: CT ABDOMEN PELVIS W CLINICAL HISTORY: epigastric pain, 1mo s/p adair TECHNIQUE: Imaging Protocol: Axial computed tomography images with coronal and sagittal reformatted images were created and reviewed CONTRAST MATERIAL: Intravenous: Omnipaque 350 Contrast volume:100 mL contrast route:IV - Oral: No COMPARISON: No exams were available for comparison FINDINGS: ABDOMEN: Lung Bases: Normal where visualized. Liver: Normal density. There are a few tiny hypodense lesions in the liver that are too small for fur ther characterization but likely reflect small cysts. No suspicious hepatic mass is seen. The brandee l, superior mesenteric and splenic veins are patent. Gallbladder and biliary tract: Status post cholecystectomy. No biliary ductal dilatation. There is a 0.4 centimeter calcification in the region of the bile duct in the head of the pancreas. The findi ngs suspicious for choledocholithiasis. Pancreas: Normal density, no abnormal calcifications or inflammatory process. Spleen: Normal. Kidneys: Normal size, contour and axis. No radiodense stones or obstructive uropathy. No masses seen. Adrenal glands: No masses seen. Abdominal Aorta: Abdominal portion non-dilated. PELVIS: Bladder: Not distended well. There thickening of the wall of the urinary bladder. This may be due t o underdistention. Inflammatory or infectious process cannot be excluded. Please correlate clinical ly. Bowel: There is mild bowel wall thickening seen in portions of the small bowel in the upper abdomen. No evidence of an acute appendicitis. Peritoneal cavity: No ascites, collection or mesenteric inflammatory response. Bones: Degenerative changes are present. Reproductive organs: Mildly enlarged prostate gland. Lymph nodes: Unremarkable. Impression: 1. Calcification in the head of the pancreas in the area of the bile duct suspicious for choledocholi thiasis. MRCP should be considered for further evaluation. 2. Mild thickening of the wall of loops of small bowel in the upper abdomen suspicious for a inflamma tory infectious enteritis. 3. Mild thickening of the wall of the urinary bladder. This may be due to underdistention of the michael dder but inflammatory or infectious cystitis cannot be excluded The findings were discussed with the emergency department on the date of the examination. DATA REPOSITORY: All CT scans at this facility are submitted to the National Radiology Data Registry (NRDR) Dose Index Registry (DIR) with the [employer] (ACR). RADIATION OPTIMIZATION: All CT scans at this facility use at least one of these dose optimization te chniques: automated exposure control; mA and/or kV adjustment per patient size (includes targeted exa ms where dose is matched to clinical indication); or iterative reconstruction.
[2019-11-11 13:24] VITALS: BP 117/62; RESP 16; TEMP 36.9; O2SAT 97
[2019-11-11 15:20] VITALS: BP 128/76; PULSE 60; RESP 20; TEMP 36.9; O2SAT 97
--- NOTE | 2019-11-11 16:09 | W.PM.HP.N ---
Date of service: 11/11/19 Time of Service: 16:09 Assessment and Plan Assessment and plan (1) Bile duct stone: Status: Acute Assessment and plan: A\\ 53 year old male with 12 hour onset of RUQ/Epigastric pain. CT scan showes a Common Bile Duct stone. He is s/p Lap. Tamar in August P\\ Admission and transfer to [facility] on Thursday for ERCP Diet: Heart healthy Activity: as tolerated DVT prophilaxis: patient is up an walking ad kristine Antibiotics: none Qualifiers: Cholecystitis presence: without cholecystitis Biliary obstruction: without biliary obstruction Qualified Code(s): K80.50 - Calculus of bile duct without cholangitis or cholecystitis without obstruction History of Present Illness History of Present Illness Chief Complaint: Abdominal pain Consults Consult date: 11/11/19 Requesting physician: Ivan Verma Narrative: t Mr. Beck is a pleasant 53 year old male who underwent a Laparoscopic Cholecystectomy in August. He has been doing well until today when he developed RUQ pain reminiscent of his Gallbladder attacks. He came to the ER and a CT scan was done which showed a stone in his Common bile duct. CBC was unremarkable. CMP showed mildly elevated LFT's. He denies fevers or chills. [facility] GI was contacted for outpatient ERCP. The declined outpatient ERCP and requested he be admitted over the weekend and then be brought down in an ambulance on Thursday for his procedure. Review of Systems Constitutional Constitutional: Denies fever(s), Denies night sweats and Denies weight loss Eyes Eyes: Denies change in vision ENT Ears, Nose, Mouth, and Throat: Denies dysphagia and Denies hoarseness Cardiovascular Cardiovascular: Denies chest pain, Denies chest pain at rest, Denies rapid heart rate, Denies irregular heart rhythm, Denies palpitations and Denies dyspnea Respiratory Respiratory: Denies cough and Denies dyspnea Gastrointestinal Gastrointestinal: Reports as per HPI and Denies dysphagia Genitourinary Genitourinary: Reports system reviewed and no additional complaints, except as docu Endocrine Endocrine: Denies palpitations [facility] Medical History Cholelithiasis (Resolved) GERD (gastroesophageal reflux disease) (Chronic) Surgical History S/P appendectomy (Acute) S/P laparoscopic cholecystectomy (Acute ~09/16/19) Social History Smoking/Tobacco Use Status: Never Alcohol Intake: current Alcohol Intake frequency: 3 or more drinks per day Alcohol type: wine Drug use: Never Current gender identity: male Do you feel safe at home: Yes Do you feel safe in your relationship?: Yes Meds Home Medications and Allergies Home Medications Medication Instructions Recorded Confirmed Type Unknown [No Known Home Meds] 11/11/19 11/11/19 History Allergies Allergy/AdvReac Type Severity Reaction Status Date / Time No Known Allergies Allergy Unverified 11/11/19 10:16 Exam Const General: cooperative, comfortable and no acute distress Orientation: alert and oriented x3 HENMT Head: normocephalic and atraumatic Eyes Pupils: PERRL Resp Effort & Inspection: normal respiratory effort Auscultation: clear to auscultation bilaterally Cardio Rate: regular rate Rhythm: regular rhythm Heart Sounds: no gallops, murmur and no rubs GI Inspection: normal to inspection and scar Palpation: soft, no hepatosplenomegaly and nontender Auscultation: normal bowel sounds Results Labs Result diagrams: 11/11/19 10:25 11/11/19 11:20 Labs: Laboratory Results - last 24 hr 11/11/19 11/11/19 11/11/19 10:25 10:25 11:20 WBC 7.02 RBC 5.19 Hgb 15.4 Hct 45.5 MCV 87.7 MCH 29.7 MCHC 33.8 RDW 12.6 Plt Count 249 MPV 10.3 Immature Gran % 0.3 Neutrophils % 66.1 Lymphocytes % 22.9 Monocytes % 8.8 Eosinophils % 1.6 Basophils % 0.3 Absolute Neutrophils 4.64 Absolute Lymphocytes 1.61 Absolute Monocytes 0.62 Absolute Eosinophils 0.11 Absolute Basophils 0.02 Sodium Cancelled 143 Potassium Cancelled 4.1 Chloride Cancelled 109 H Carbon Dioxide Cancelled 26.7 Anion Gap Cancelled 7.3 BUN Cancelled 16 Creatinine Cancelled 0.86 Estimated GFR/1.73 m2 Cancelled >= 60.00 Glucose Cancelled 104 Calcium Cancelled 8.2 L Total Bilirubin Cancelled 1.0 AST Cancelled 72 H ALT Cancelled 80 H Alkaline Phosphatase Cancelled 51 Troponin I Cancelled < 0.05 Total Protein Cancelled 6.9 Albumin Cancelled 3.6 Lipase Cancelled 100 Last Vital Signs Temp 98.4 F 11/11/19 15:20 Pulse 60 11/11/19 15:20 Resp 20 11/11/19 15:20 BP 128/76 11/11/19 15:20 Pulse Ox 97 11/11/19 15:20
[2019-11-11 16:52] VITALS: BP 133/82; PULSE 59; RESP 18; TEMP 35.6; O2SAT 98
--- NOTE | 2019-11-11 17:35 | NUR.NOTE ---
Nursing Note: Faxed to Gastroenterology the MD note, labs, and CT report. Sandra Mccarthy. F [phone]
[2019-11-11 19:15] VITALS: BP 115/70; PULSE 60; RESP 17; TEMP 36.5; O2SAT 96
--- NOTE | 2019-11-11 20:32 | NUR.NOTE ---
Nursing Note: Pt is admitted in Room 214. AO x 3. ambulatory, has bearable abdominal pain.. Requested to remove IID on rt. antecubital, refused to have another site as of this time. Pt stated when it's needed that's the time to put new one. Admission care rendered.
[2019-11-11 23:28] VITALS: BP 119/74; PULSE 54; RESP 17; TEMP 36.2; O2SAT 96
[2019-11-12 07:46] VITALS: BP 116/76; PULSE 54; RESP 12; TEMP 36.7; O2SAT 99
--- NOTE | 2019-11-12 11:29 | W.PM.PROGNOT ---
Date of Service Date of service: 11/12/19 Time of Service: 11:29 Assessment and Plan Assessment and plan (1) Bile duct stone: Status: Acute Assessment and plan: A\\ Common Bile duct stone, s/p Lap. Tamar on September 21. P\\ Check labs tomorrow in am Transport Thursday morning to [facility] [place] Patient may walk around and go downstairs to get a book. No Vital between 12 and 7 am please Qualifiers: Cholecystitis presence: without cholecystitis Biliary obstruction: without biliary obstruction Qualified Code(s): K80.50 - Calculus of bile duct without cholangitis or cholecystitis without obstruction Subjective Subjective Interval history since last seen: Suraj is doing well. he is having some mild discomfort after eating. 1-2/10 on the pain scale. He is not requiring any pain medications. No nausea or Vomiting Exam Resp Effort & Inspection: normal respiratory effort Auscultation: clear to auscultation bilaterally Cardio Rate: regular rate Rhythm: regular rhythm GI Inspection: normal to inspection Palpation: soft, no hepatosplenomegaly and nontender Objective Objective Clinical Data: Abnormal lab results 11/11/19 Range/Units 11:20 Chloride 109 H (98-107) mmol/L Calcium 8.2 L (8.5-10.1) mg/dL AST 72 H (15-37) U/L ALT 80 H (16-63) U/L Vital Signs Temperature 98.1 F 11/12/19 07:46 Temperature Source Skin 11/12/19 07:46 Pulse 54 L 11/12/19 07:46 Pulse Rhythm Regular 11/12/19 07:46 Respiratory Rate 12 11/12/19 07:46 Respiratory Effort Non-Labored 11/12/19 07:46 Respiratory Depth Normal 11/12/19 07:46 Respiratory Pattern Normal 11/12/19 07:46 Blood Pressure 116/76 11/12/19 07:46 Blood Pressure Position Sitting 11/11/19 10:09 Pulse Oximetry 99 11/12/19 07:46 Oxygen Delivery Method Room Air 11/12/19 07:46 Oxygen Flow Rate 0 11/12/19 07:46 Pain Level 0 11/12/19 07:46 Intake & Output 11/11/19 11/11/19 11/12/19 11:59 23:59 11:59 Intake Total 510 / 1010 500 / 1010 1100 / 1100 Output Total 500 / 500 550 / 550 Balance 510 / 510 0 / 510 550 / 550 Weight 185 lb 0.014 oz 199 lb 11.821 oz Intake: IV 510 / 1010 500 / 1010 Oral 1100 / 1100 Output: Urine 500 / 500 550 / 550 Other: Urine Color Light Belinda Light Belinda Urine Appearance Clear Clear Urine Odor Normal Comment voids independently in toilet. Voiding Methods Toilet Toilet Laboratory Results WBC 7.02 k/cumm (4.4-10.8) 11/11/19 10:25 RBC 5.19 m/cumm (4.50-6.00) 11/11/19 10:25 Hgb 15.4 g/dL (13.5-17.5) 11/11/19 10:25 Hct 45.5 % (40.0-50.0) 11/11/19 10:25 MCV 87.7 fL (80-95) 11/11/19 10:25 MCH 29.7 pg (27.0-33.0) 11/11/19 10:25 MCHC 33.8 g/dL (32.0-36.0) 11/11/19 10:25 RDW 12.6 % (11.8-14.1) 11/11/19 10:25 Plt Count 249 x1000/uL (130-400) 11/11/19 10:25 MPV 10.3 fL (8.0-11.0) 11/11/19 10:25 Immature Gran % 0.3 11/11/19 10:25 Neutrophils % 66.1 11/11/19 10:25 Lymphocytes % 22.9 11/11/19 10:25 Monocytes % 8.8 11/11/19 10:25 Eosinophils % 1.6 11/11/19 10:25 Basophils % 0.3 11/11/19 10:25 Absolute Neutrophils 4.64 k/cumm (1.2-6.7) 11/11/19 10:25 Absolute Lymphocytes 1.61 k/cumm (1.2-3.4) 11/11/19 10:25 Absolute Monocytes 0.62 k/cumm (0.11-0.7) 11/11/19 10:25 Absolute Eosinophils 0.11 k/cumm (0.0-0.7) 11/11/19 10:25 Absolute Basophils 0.02 k/cumm (0.0-0.2) 11/11/19 10:25 Sodium 143 mmol/L (136-145) 11/11/19 11:20 Potassium 4.1 mmol/L (3.5-5.1) 11/11/19 11:20 Chloride 109 mmol/L (98-107) H 11/11/19 11:20 Carbon Dioxide 26.7 mmol/L (21.0-32.0) 11/11/19 11:20 Anion Gap 7.3 mmol/L (3-11) 11/11/19 11:20 BUN 16 mg/dL (7-18) 11/11/19 11:20 Creatinine 0.86 mg/dL (0.70-1.30) 11/11/19 11:20 Estimated GFR/1.73 m2 >= 60.00 (mL/min/1.73m2) 11/11/19 11:20 Glucose 104 mg/dL (74-106) 11/11/19 11:20 Calcium 8.2 mg/dL (8.5-10.1) L 11/11/19 11:20 Total Bilirubin 1.0 mg/dL (0.2-1.0) 11/11/19 11:20 AST 72 U/L (15-37) H 11/11/19 11:20 ALT 80 U/L (16-63) H 11/11/19 11:20 Alkaline Phosphatase 51 U/L (46-116) 11/11/19 11:20 Troponin I < 0.05 ng/Ml (<0.06) 11/11/19 11:20 Total Protein 6.9 g/dL (6.4-8.2) 11/11/19 11:20 Albumin 3.6 g/dL (3.4-5.0) 11/11/19 11:20 Lipase 100 U/L (73-393) 11/11/19 11:20
--- NOTE | 2019-11-12 11:45 | PHARADMIT ---
Addendum entered by Ortega Azul III 11/14/19 11:41: VS-OK AST-576 ALT-1240 [id number] other Labs-WNL Patient to transfer to [facility] for ERCP today, and return. Awaiting return. Addendum entered by Ly Snyder 11/13/19 11:05: Pharmacy Note Subjective pt getting stir crazy per progress note Objective HR-54 other VS okay AST-646(up) ALT-968(up) alk phos-134(up) Assessment pt changed to NPO except sips of water LR infusion started Plan watch LFTs in AM; transfer to [facility] in AM for ERCP Original Note: Admission Pharmacy Clinical Review CBD stone Code Status Full Code Current Weight 90.6 kg Renally Cleared and Narrow Therapeutic Index Meds Crcl ~101 mL/min current meds okay QTc Value / Action Taken QTc 427 BP Control, Fever BP 116/76 afebrile Electrolytes reviewed Cl 109 DVT Prophylaxis none Opiate Usage / Scheduled Bowel Regimen Ordered no/no Plt/SCr for Heparin / Enoxaparin plt 249 SCr 0.86 INR for Warfarin n/a H/H stable, WBC/Bands h/h 15.4/45.5 WBC 7.02 Antibiotic appropriateness none Cultures and Sensitivities none Surgical ABX d/c within 24 hr n/a DM control / Insulin Dosing Bg 104 none Heart Failure (Check EF%) (RANDOLPH's, B-Block, Diuretics) none IV to PO Switch n/a Home Meds Reviewed no known home meds Home Meds Not Ordered no known home meds Comments transfer to [facility] Thursday for ERCP
--- NOTE | 2019-11-12 14:08 | INITIAL_ITS ---
Care Management Initial Assess REASON FOR HOSPITALIZATION:: Common Bile Duct Stone PAST MEDICAL HISTORY/PAST SURGICAL HISTORY:: Cardiac murmur, cholelithiasis, GERD, metatarsalgia, tinnitus, appendectomy, colonoscopy, laparoscopic cholecystectomy PREVIOUS FUNCTIONAL STATUS/SOCIAL/FAMILY SUPPORTS:: Suraj resides in [place], [place]. He is independent with ADLs in the community. CURRENT FUNCTIONAL STATUS:: Suraj is sitting up in bed, visiting with his friend. He is forthcoming with information and pleasant in interaction. ADVANCE DIRECTIVES:: None on file at [facility]. Has patient been provided with information about the portal?: Yes Did the patient sign up for the portal?: No CODE STATUS:: Full Code INSURANCE COVERAGE / FINANCIAL ISSUES:: Medicaid CURRENT HOME/COMMUNITY SERVICES/EQUIPMENT:: No current services or equipment. PRIMARY CARE PHYSICIAN:: Gualberto Dorantes POTENTIAL DISCHARGE NEEDS:: ERCP down and back to [facility] on [place]/14/19. PATIENT/FAMILY EDUCATION NEEDS:: Review discharge instructions, discuss Ask Me Three. ANTICIPATED BARRIERS TO DISCHARGE:: None identified at this time. TRANSPORTATION:: Via private vehicle with friend/family. PLAN:: Suraj will continue to be closely monitored and treated for pain. He is being encouraged to ambulate and is awaiting ERCP (down and back) at [facility] on 11/14/19. CM continues to follow.
[2019-11-12 17:16] VITALS: BP 124/78; PULSE 66; RESP 18; TEMP 36.3; O2SAT 94
[2019-11-12 19:34] VITALS: BP 124/78; PULSE 62; RESP 18; TEMP 36.3; O2SAT 97
[2019-11-12 23:40] VITALS: BP 117/75; PULSE 60; RESP 16; TEMP 36.7; O2SAT 97
[2019-11-13 07:14] LABS: Abs Immature Grans 0.02 k/cumm (0.0-0.09); Absolute Basophil Count 0.03 k/cumm (0.0-0.2); Absolute Eosinophil Count 0.12 k/cumm (0.0-0.7); Absolute Lymphocyte Count 0.66 k/cumm (1.2-3.4); Absolute Monocyte Count 0.47 k/cumm (0.11-0.7); Basophils % 0.7; Eosinophils % 2.6; HCT 43.7 % (40.0-50.0); HGB 15.3 g/dL (13.5-17.5); Immature Grans % 0.4; Lymphocytes % 14.3; Mean Corpuscular Hemoglobin 30.3 pg (27.0-33.0); Mean Corpuscular Volume 86.5 fL (80-95); Mean Platelet Volume 10.1 fL (8.0-11.0); Monocytes % 10.2; Neutrophils % 71.8; Platelet Count 212 x1000/uL (130-400); RBC 5.05 m/cumm (4.50-6.00); RBC Distribution Width 12.5 % (11.8-14.1)
[2019-11-13 07:20] VITALS: BP 114/76; PULSE 54; RESP 14; TEMP 36.7; O2SAT 95
[2019-11-13 07:36] LABS: AST 646 U/L (15-37); Albumin 3.6 g/dL (3.4-5.0); Alkaline Phosphatase 134 U/L (46-116); Anion Gap 9.5 mmol/L (3-11); BUN 15 mg/dL (7-18); Bilirubin, Total 1.1 mg/dL (0.2-1.0); CO2 25.5 mmol/L (21.0-32.0); CREATININE 0.95 mg/dL (0.70-1.30); Calcium 8.6 mg/dL (8.5-10.1); Chloride 107 mmol/L (98-107); Glucose 92 mg/dL (74-106); Potassium 3.9 mmol/L (3.5-5.1); Sodium 142 mmol/L (136-145); Total Protein 7.1 g/dL (6.4-8.2)
[2019-11-13 07:59] LABS: ALT 968 U/L (16-63)
--- NOTE | 2019-11-13 08:49 | PDOC.CMPRO ---
Care Management Progress Note S/O: Suraj remains pleasant in interaction and agreeable to treatment plan including down and back for ERCP at [facility] tomorrow, Thursday11/14/19. He spoke in length about his profession and his support system of friends locally. He reported he is currently unable to eat and experiencing increased pain. He had a shower this morning and dressed up in dress pants and a dress shirt, appearing well-kempt. He is struggling with remaining at [facility] at this time but verbalizes understanding of the plan and is agreement with treatment plan. A: 53 year old male admitted to [facility] 11/11/19 for CBD Stone P: Suraj will continue to be closely monitored and treated for pain. He is being encouraged to ambulate and is awaiting ERCP (down and back) at [facility] on 11/14/19. CM continues to follow.
--- NOTE | 2019-11-13 10:42 | W.PM.PROGNOT ---
Date of Service Date of service: 11/13/19 Time of Service: 10:42 Assessment and Plan Assessment and plan (1) Bile duct stone: Status: Acute Assessment and plan: A\\ Common Bile Duct stone with increase in LFT's since Thursday Not feeling as well today P\\ 1. Diet: will make NPO except for sips of water 2. Hydration: Start LR at 80 cc/hr 3. Increased LFT's: recheck in am 4. Activity: up ad kristine 5. Transport to [facility] tomorrow morning for ERCP 6. No antibiotics at this time. Patient is not febrile and WBC count is normal. Will recheck CBC in am Qualifiers: Cholecystitis presence: without cholecystitis Biliary obstruction: without biliary obstruction Qualified Code(s): K80.50 - Calculus of bile duct without cholangitis or cholecystitis without obstruction Subjective Subjective Interval history since last seen: Suraj is getting stir crazy. He does endorse not feeling as well since last night. Pain only when he tries to eat and it is a 1-2/10 on the pain scale. Some Nausea intermittent. Doesn't want to eat. Exam Const General: cooperative and comfortable Orientation: alert and oriented x3 HENMT Head: normocephalic and atraumatic Eyes Sclera: sclerae normal GI Inspection: normal to inspection Palpation: soft, no hepatosplenomegaly and nontender Objective Objective Clinical Data: Abnormal lab results 11/13/19 11/13/19 Range/Units 06:48 06:48 Absolute Lymphocytes 0.66 L (1.2-3.4) k/cumm Total Bilirubin 1.1 H (0.2-1.0) mg/dL AST 646 H (15-37) U/L ALT 968 H (16-63) U/L Alkaline Phosphatase 134 H (46-116) U/L Vital Signs Temperature 98.1 F 11/13/19 07:20 Temperature Source Skin 11/13/19 07:20 Pulse 54 L 11/13/19 07:20 Pulse Rhythm Regular 11/13/19 07:20 Respiratory Rate 14 11/13/19 07:20 Respiratory Effort Non-Labored 11/13/19 07:20 Respiratory Depth Normal 11/13/19 07:20 Respiratory Pattern Normal 11/13/19 07:20 Blood Pressure 114/76 11/13/19 07:20 Blood Pressure Position Sitting 11/11/19 10:09 Pulse Oximetry 95 11/13/19 07:20 Oxygen Delivery Method Room Air 11/13/19 07:20 Oxygen Flow Rate 0 11/13/19 07:20 Pain Level 0 11/13/19 07:20 Intake & Output 11/12/19 11/12/19 11/13/19 11:59 23:59 11:59 Intake Total 1100 / 1100 Output Total 550 / 1550 1000 / 1550 Balance 550 / -450 -1000 / -450 Intake: Oral 1100 / 1100 Output: Urine 550 / 1550 1000 / 1550 Other: Urine Color Light Belinda Yellow Urine Appearance Clear Clear Clear Urine Odor Normal Normal Comment voids independently in toilet. voids independently in toilet. Voiding Methods Toilet Toilet Toilet Laboratory Results WBC 4.60 k/cumm (4.4-10.8) 11/13/19 06:48 RBC 5.05 m/cumm (4.50-6.00) 11/13/19 06:48 Hgb 15.3 g/dL (13.5-17.5) 11/13/19 06:48 Hct 43.7 % (40.0-50.0) 11/13/19 06:48 MCV 86.5 fL (80-95) 11/13/19 06:48 MCH 30.3 pg (27.0-33.0) 11/13/19 06:48 MCHC 35.0 g/dL (32.0-36.0) 11/13/19 06:48 RDW 12.5 % (11.8-14.1) 11/13/19 06:48 Plt Count 212 x1000/uL (130-400) 11/13/19 06:48 MPV 10.1 fL (8.0-11.0) 11/13/19 06:48 Immature Gran % 0.4 11/13/19 06:48 Neutrophils % 71.8 11/13/19 06:48 Lymphocytes % 14.3 11/13/19 06:48 Monocytes % 10.2 11/13/19 06:48 Eosinophils % 2.6 11/13/19 06:48 Basophils % 0.7 11/13/19 06:48 Absolute Neutrophils 3.30 k/cumm (1.2-6.7) 11/13/19 06:48 Absolute Lymphocytes 0.66 k/cumm (1.2-3.4) L 11/13/19 06:48 Absolute Monocytes 0.47 k/cumm (0.11-0.7) 11/13/19 06:48 Absolute Eosinophils 0.12 k/cumm (0.0-0.7) 11/13/19 06:48 Absolute Basophils 0.03 k/cumm (0.0-0.2) 11/13/19 06:48 Sodium 142 mmol/L (136-145) 11/13/19 06:48 Potassium 3.9 mmol/L (3.5-5.1) 11/13/19 06:48 Chloride 107 mmol/L (98-107) 11/13/19 06:48 Carbon Dioxide 25.5 mmol/L (21.0-32.0) 11/13/19 06:48 Anion Gap 9.5 mmol/L (3-11) 11/13/19 06:48 BUN 15 mg/dL (7-18) 11/13/19 06:48 Creatinine 0.95 mg/dL (0.70-1.30) 11/13/19 06:48 Estimated GFR/1.73 m2 >= 60.00 (mL/min/1.73m2) 11/13/19 06:48 Glucose 92 mg/dL (74-106) 11/13/19 06:48 Calcium 8.6 mg/dL (8.5-10.1) 11/13/19 06:48 Total Bilirubin 1.1 mg/dL (0.2-1.0) H 11/13/19 06:48 AST 646 U/L (15-37) H 11/13/19 06:48 ALT 968 U/L (16-63) H 11/13/19 06:48 Alkaline Phosphatase 134 U/L (46-116) H 11/13/19 06:48 Troponin I < 0.05 ng/Ml (<0.06) 11/11/19 11:20 Total Protein 7.1 g/dL (6.4-8.2) 11/13/19 06:48 Albumin 3.6 g/dL (3.4-5.0) 11/13/19 06:48 Lipase 100 U/L (73-393) 11/11/19 11:20
[2019-11-13] MEDS: Normal Saline Flush 10 ML SYR IVP ×2 (12:17→20:40)
[2019-11-13] MEDS: Lactated Ringers 1,000 ML 80 ML IV (14:02)
[2019-11-13 15:21] VITALS: BP 119/81; PULSE 60; RESP 14; TEMP 37; O2SAT 95
[2019-11-13 19:40] VITALS: BP 117/73; PULSE 57; RESP 16; TEMP 36.2; O2SAT 96
[2019-11-13] MEDS: Ketorolac 30 MG/ML VIAL IVP (20:42)
[2019-11-14] MEDS: Lactated Ringers 1,000 ML 80 ML IV (01:48)
[2019-11-14 06:35] LABS: Abs Immature Grans 0.01 k/cumm (0.0-0.09); Absolute Basophil Count 0.03 k/cumm (0.0-0.2); Absolute Eosinophil Count 0.14 k/cumm (0.0-0.7); Absolute Lymphocyte Count 0.64 k/cumm (1.2-3.4); Absolute Monocyte Count 0.53 k/cumm (0.11-0.7); Absolute Neutrophil Count 2.61 k/cumm (1.2-6.7); Basophils % 0.8; Eosinophils % 3.5; HCT 43.7 % (40.0-50.0); HGB 15.3 g/dL (13.5-17.5); Immature Grans % 0.3; Lymphocytes % 16.2; Mean Corpuscular Hemoglobin 30.4 pg (27.0-33.0); Mean Corpuscular Volume 86.7 fL (80-95); Mean Platelet Volume 10.1 fL (8.0-11.0); Monocytes % 13.4; Neutrophils % 65.8; Platelet Count 194 x1000/uL (130-400); RBC 5.04 m/cumm (4.50-6.00); RBC Distribution Width 12.4 % (11.8-14.1); White Blood Cell Count 3.96 k/cumm (4.4-10.8)
[2019-11-14 06:58] LABS: AST 576 U/L (15-37); Albumin 3.5 g/dL (3.4-5.0); BUN 14 mg/dL (7-18); Bilirubin, Total 4.4 mg/dL (0.2-1.0); CREATININE 0.92 mg/dL (0.70-1.30); Calcium 8.7 mg/dL (8.5-10.1); Chloride 105 mmol/L (98-107); Glucose 73 mg/dL (74-106); Sodium 140 mmol/L (136-145); Total Protein 6.9 g/dL (6.4-8.2)
--- NOTE | 2019-11-14 07:14 | PGE_ITS ---
Date of Service Date of service: 11/14/19 Time of Service: 07:14 Assessment and Plan Assessment and plan (1) Bile duct stone: Status: Acute Assessment and plan: Patient is scheduled to have ERCP at [facility] later today. Pain is currently well controlled, he describes this as an ache. DIET- NPO ACTIVITY- As tolerated IV LR at 80 ml/hr. Qualifiers: Cholecystitis presence: without cholecystitis Biliary obstruction: without biliary obstruction Qualified Code(s): K80.50 - Calculus of bile duct without cholangitis or cholecystitis without obstruction Subjective Subjective Interval history since last seen: Patient reports that he is doing okay this morning. He was able to get some sleep after taking some pain medication last evening. He is eager to have the ERCP later today at [facility]. Exam Const General: cooperative and comfortable Orientation: alert and oriented x3 Resp Effort & Inspection: normal respiratory effort, no audible wheezes and no cough GI Inspection: normal to inspection and non-distended Objective Objective Clinical Data: Abnormal lab results 11/13/19 11/13/19 11/14/19 Range/Units 06:48 06:48 06:25 WBC (4.4-10.8) k/cumm Absolute Lymphocytes 0.66 L (1.2-3.4) k/cumm Glucose 73 L (74-106) mg/dL Total Bilirubin 1.1 H 4.4 H (0.2-1.0) mg/dL AST 646 H 576 H (15-37) U/L ALT 968 H (16-63) U/L Alkaline Phosphatase 134 H (46-116) U/L 11/14/19 Range/Units 06:25 WBC 3.96 L (4.4-10.8) k/cumm Absolute Lymphocytes 0.64 L (1.2-3.4) k/cumm Glucose (74-106) mg/dL Total Bilirubin (0.2-1.0) mg/dL AST (15-37) U/L ALT (16-63) U/L Alkaline Phosphatase (46-116) U/L Vital Signs Temperature 36.2 C L 11/13/19 19:40 Temperature Source Tympanic 11/13/19 19:40 Pulse 57 L 11/13/19 19:40 Pulse Rhythm Regular 11/14/19 00:34 Respiratory Rate 16 11/13/19 19:40 Respiratory Effort 11/14/19 00:34 Respiratory Depth Normal 11/14/19 00:34 Respiratory Pattern Normal 11/14/19 00:34 Blood Pressure 117/73 11/13/19 19:40 Blood Pressure Position Sitting 11/11/19 10:09 Pulse Oximetry 96 11/13/19 19:40 Oxygen Delivery Method Room Air 11/13/19 19:40 Oxygen Flow Rate 0 11/13/19 19:40 Pain Level 3 11/13/19 20:42 Intake & Output 11/13/19 11/14/19 11/14/19 18:59 06:59 18:59 Intake Total . 951.333 / 961.333 Balance . 951.333 / 961.333 Intake: IV 951.333 / 961.333 Other: Urine Appearance Clear Clear Comment voids independently in toilet. Voiding independently Voiding Methods Toilet Toilet Laboratory Results WBC 3.96 k/cumm (4.4-10.8) L 11/14/19 06:25 RBC 5.04 m/cumm (4.50-6.00) 11/14/19 06:25 Hgb 15.3 g/dL (13.5-17.5) 11/14/19 06:25 Hct 43.7 % (40.0-50.0) 11/14/19 06:25 MCV 86.7 fL (80-95) 11/14/19 06:25 MCH 30.4 pg (27.0-33.0) 11/14/19 06:25 MCHC 35.0 g/dL (32.0-36.0) 11/14/19 06:25 RDW 12.4 % (11.8-14.1) 11/14/19 06:25 Plt Count 194 x1000/uL (130-400) 11/14/19 06:25 MPV 10.1 fL (8.0-11.0) 11/14/19 06:25 Immature Gran % 0.3 11/14/19 06:25 Neutrophils % 65.8 11/14/19 06:25 Lymphocytes % 16.2 11/14/19 06:25 Monocytes % 13.4 11/14/19 06:25 Eosinophils % 3.5 11/14/19 06:25 Basophils % 0.8 11/14/19 06:25 Absolute Neutrophils 2.61 k/cumm (1.2-6.7) 11/14/19 06:25 Absolute Lymphocytes 0.64 k/cumm (1.2-3.4) L 11/14/19 06:25 Absolute Monocytes 0.53 k/cumm (0.11-0.7) 11/14/19 06:25 Absolute Eosinophils 0.14 k/cumm (0.0-0.7) 11/14/19 06:25 Absolute Basophils 0.03 k/cumm (0.0-0.2) 11/14/19 06:25 Sodium 140 mmol/L (136-145) 11/14/19 06:25 Potassium 4.0 mmol/L (3.5-5.1) 11/14/19 06:25 Chloride 105 mmol/L (98-107) 11/14/19 06:25 Carbon Dioxide 26.0 mmol/L (21.0-32.0) 11/14/19 06:25 Anion Gap 9.0 mmol/L (3-11) 11/14/19 06:25 BUN 14 mg/dL (7-18) 11/14/19 06:25 Creatinine 0.92 mg/dL (0.70-1.30) 11/14/19 06:25 Estimated GFR/1.73 m2 >= 60.00 (mL/min/1.73m2) 11/14/19 06:25 Glucose 73 mg/dL (74-106) L 11/14/19 06:25 Calcium 8.7 mg/dL (8.5-10.1) 11/14/19 06:25 Total Bilirubin 4.4 mg/dL (0.2-1.0) H 11/14/19 06:25 AST 576 U/L (15-37) H 11/14/19 06:25 ALT 968 U/L (16-63) H 11/13/19 06:48 Alkaline Phosphatase 134 U/L (46-116) H 11/13/19 06:48 Troponin I < 0.05 ng/Ml (<0.06) 11/11/19 11:20 Total Protein 6.9 g/dL (6.4-8.2) 11/14/19 06:25 Albumin 3.5 g/dL (3.4-5.0) 11/14/19 06:25 Lipase 100 U/L (73-393) 11/11/19 11:20
[2019-11-14 07:17] LABS: ALT 1240 U/L (16-63); Alkaline Phosphatase 178 U/L (46-116)
[2019-11-14 07:54] VITALS: BP 113/69; PULSE 61; RESP 17; TEMP 36.9; O2SAT 96
[2019-11-14] MEDS: Ondansetron 4 MG/2 ML VIAL IVP (09:40)
[2019-11-14] MEDS: Normal Saline Flush 10 ML SYR IVP (09:40)
--- NOTE | 2019-11-14 11:21 | W.NUTCONSULT ---
Date of service: 11/14/19 Time of Service: 11:21 Nutritional Consult ASSESSMENT: 53 year old male admitted with bile duct stone, s/p lap adair 2018. Has been NPO x 2 days for procedure today. BMI indicates overweight status. Will monitor diet advancement. Time Spent in Nutritional Counseling and Treatment: 0 time spent face to face
--- NOTE | 2019-11-14 18:40 | CMPROGNOTE_ITS ---
Care Management Progress Note S/O: Suraj completed down and back for ERCP at [facility], he is sitting in his chair, happy to be eating and content with remaining at [facility] through the night. A: 53 year old male admitted to [facility] 11/11/19 for CBD Stone P: Suraj will continue to be closely monitored and treated for pain. He will return home with no additional services anticipated at this time. He will follow up with his PCP and plan of care as prescribed. Suraj will transport via private vehicle with a friend. CM continues to follow.
--- NOTE | 2019-11-14 18:40 | PDOC.CMPRO ---
Care Management Progress Note S/O: Suraj completed down and back for ERCP at [facility], he is sitting in his chair, happy to be eating and content with remaining at [facility] through the night. A: 53 year old male admitted to [facility] 11/11/19 for CBD Stone P: Suraj will continue to be closely monitored and treated for pain. He will return home with no additional services anticipated at this time. He will follow up with his PCP and plan of care as prescribed. Suraj will transport via private vehicle with a friend. CM continues to follow.
[2019-11-14 20:30] VITALS: BP 133/78; PULSE 67; RESP 16; TEMP 36.6; O2SAT 96
[2019-11-14 22:55] VITALS: BP 144/77; PULSE 68; RESP 16; TEMP 36.7; O2SAT 95
--- NOTE | 2019-11-15 07:10 | PGE_ITS ---
Documented by User: JENNA Vu 11/15/19 07:13 Date of Service Date of service: 11/15/19 Time of Service: 07:10 Assessment and Plan Assessment and plan (1) Epigastric pain: Status: Acute (2) Bile duct stone: Status: Acute Assessment and plan: S/p ERCP yesterday at [facility]. Patient reports feeling much better. Tolerating regular diet Morning Labs for LFTs are PENDING P// D/C home later today Qualifiers: Biliary obstruction: without biliary obstruction Cholecystitis presence: without cholecystitis Qualified Code(s): K80.50 - Calculus of bile duct without cholangitis or cholecystitis without obstruction Subjective Subjective Interval history since last seen: Patient reports he is feeling much better today. Reports mild abdominal ache. He was able to sleep a few hours last night. Tolerating regular diet without any abdominal pain, nausea or vomiting. Exam Const General: cooperative, healthy appearing and comfortable Orientation: alert and oriented x3 Resp Effort & Inspection: normal respiratory effort, no audible wheezes and no cough GI Inspection: normal to inspection and non-distended Palpation: soft, no guarding and nontender Objective Objective Clinical Data: Abnormal lab results 11/14/19 Range/Units 06:25 ALT 1240 H (16-63) U/L Alkaline Phosphatase 178 H (46-116) U/L Vital Signs Temperature 36.7 C 11/14/19 22:55 Temperature Source Skin 11/14/19 22:55 Pulse 68 11/14/19 22:55 Pulse Rhythm Regular 11/15/19 00:10 Respiratory Rate 16 11/14/19 22:55 Respiratory Effort Non-Labored 11/15/19 00:10 Respiratory Depth Normal 11/15/19 00:10 Respiratory Pattern Normal 11/15/19 00:10 Blood Pressure 144/77 H 11/14/19 22:55 Blood Pressure Position Sitting 11/11/19 10:09 Pulse Oximetry 95 11/14/19 22:55 Oxygen Delivery Method Room Air 11/14/19 22:55 Oxygen Flow Rate 0 11/14/19 22:55 Pain Level 1 11/14/19 22:55 Intake & Output 11/14/19 11/15/19 11/15/19 18:59 06:59 18:59 Intake Total 653.333 / 653.333 Balance 653.333 / 653.333 Intake: IV 653.333 / 122.898 Other: Urine Appearance Clear Voiding Methods Toilet Laboratory Results WBC 3.96 k/cumm (4.4-10.8) L 11/14/19 06:25 RBC 5.04 m/cumm (4.50-6.00) 11/14/19 06:25 Hgb 15.3 g/dL (13.5-17.5) 11/14/19 06:25 Hct 43.7 % (40.0-50.0) 11/14/19 06:25 MCV 86.7 fL (80-95) 11/14/19 06:25 MCH 30.4 pg (27.0-33.0) 11/14/19 06:25 MCHC 35.0 g/dL (32.0-36.0) 11/14/19 06:25 RDW 12.4 % (11.8-14.1) 11/14/19 06:25 Plt Count 194 x1000/uL (130-400) 11/14/19 06:25 MPV 10.1 fL (8.0-11.0) 11/14/19 06:25 Immature Gran % 0.3 11/14/19 06:25 Neutrophils % 65.8 11/14/19 06:25 Lymphocytes % 16.2 11/14/19 06:25 Monocytes % 13.4 11/14/19 06:25 Eosinophils % 3.5 11/14/19 06:25 Basophils % 0.8 11/14/19 06:25 Absolute Neutrophils 2.61 k/cumm (1.2-6.7) 11/14/19 06:25 Absolute Lymphocytes 0.64 k/cumm (1.2-3.4) L 11/14/19 06:25 Absolute Monocytes 0.53 k/cumm (0.11-0.7) 11/14/19 06:25 Absolute Eosinophils 0.14 k/cumm (0.0-0.7) 11/14/19 06:25 Absolute Basophils 0.03 k/cumm (0.0-0.2) 11/14/19 06:25 Sodium 140 mmol/L (136-145) 11/14/19 06:25 Potassium 4.0 mmol/L (3.5-5.1) 11/14/19 06:25 Chloride 105 mmol/L (98-107) 11/14/19 06:25 Carbon Dioxide 26.0 mmol/L (21.0-32.0) 11/14/19 06:25 Anion Gap 9.0 mmol/L (3-11) 11/14/19 06:25 BUN 14 mg/dL (7-18) 11/14/19 06:25 Creatinine 0.92 mg/dL (0.70-1.30) 11/14/19 06:25 Estimated GFR/1.73 m2 >= 60.00 (mL/min/1.73m2) 11/14/19 06:25 Glucose 73 mg/dL (74-106) L 11/14/19 06:25 Calcium 8.7 mg/dL (8.5-10.1) 11/14/19 06:25 Total Bilirubin 4.4 mg/dL (0.2-1.0) H 11/14/19 06:25 AST 576 U/L (15-37) H 11/14/19 06:25 ALT 1240 U/L (16-63) H 11/14/19 06:25 Alkaline Phosphatase 178 U/L (46-116) H 11/14/19 06:25 Troponin I < 0.05 ng/Ml (<0.06) 11/11/19 11:20 Total Protein 6.9 g/dL (6.4-8.2) 11/14/19 06:25 Albumin 3.5 g/dL (3.4-5.0) 11/14/19 06:25 Lipase 100 U/L (73-393) 11/11/19 11:20 Documented by User: Alethea Ohara MD 11/15/19 08:50
--- NOTE | 2019-11-15 07:13 | DSE_ITS ---
Documented by User: JENNA Vu 11/15/19 07:57 Date of service: 11/15/19 Time of Service: 07:13 DS: Diagnosis Discharge Diagnosis (1) Epigastric pain: Status: Acute (2) Bile duct stone: Status: Acute Discharge Plan Disposition Patient Disposition: HOME Condition: Stable Discharge Details Chief Complaint: Abd Prob Clinical Impression: Common bile duct calculus Reason For Visit: CBD STONE Admit Date/Time: 11/11/19 15:46 Admit Provider: Alice Aguirre Attending Provider: Alice Aguirre Primary Care Provider: Gualberto Dorantes ED Provider: Ivan Verma Hospital Course Hospital Course: 53 y/o male presented to the ER on 11/11/19 for epigastric pain after eating. He is s/p Laproscopic Cholecystectomy in 08/2019. CT scan showed retained stone in the head of the pancreas/common bile duct. He was admitted as inpatient to surgical services for pain control and observation with scheduled ERCP at [facility] for 11/14/19. Over the weekend LFTs and Bilirubin were elevated. ERCP on 11/14/19 went well, and patient's abdominal pain improved significantly. LFTs and Bilirubin started trending down with this morning's labs. He was kept overnight to ensure he was tolerating a regular diet and that his pain was well managed. D/C home. Will schedule a follow up in 2 weeks. Home Meds and New Rx's Prescriptions: No Action No Known Home Meds RF: 0 Discharge Instructions Stand Alone Forms: Nursing Discharge Form Referrals: Gualberto Dorantes [Primary Care Provider] - 11/25/19 12:45 pm Activity:: Activity as Tolerated Equipment/Supplies:: No Equipment Needed Diet:: Low Fat DS: Summary Status at Discharge Functional status at discharge: independent ambulation Overall status at discharge: patient is back to baseline Mental Status: mental status grossly normal Speech and Movement: speech and movement normal Mood: congruent mood Affect: normal affect Time Spent with Patient providing and/or coordinating discharge services: Less than 30 minutes Exam Const General: cooperative, healthy appearing and comfortable Orientation: alert and oriented x3 Resp Effort & Inspection: normal respiratory effort, no audible wheezes and no cough GI Inspection: normal to inspection and non-distended Psych Mental Status: mental status grossly normal Speech and Movement: speech and movement normal Mood: congruent mood Affect: normal affect DS: Data Vitals/I&O Vitals and I&O: Vital Signs Temperature 36.7 C 11/14/19 22:55 Temperature Source Skin 11/14/19 22:55 Pulse 68 11/14/19 22:55 Pulse Rhythm Regular 11/15/19 00:10 Respiratory Rate 16 11/14/19 22:55 Respiratory Effort Non-Labored 11/15/19 00:10 Respiratory Depth Normal 11/15/19 00:10 Respiratory Pattern Normal 11/15/19 00:10 Blood Pressure 144/77 H 11/14/19 22:55 Blood Pressure Position Sitting 11/11/19 10:09 Pulse Oximetry 95 11/14/19 22:55 Oxygen Delivery Method Room Air 11/14/19 22:55 Oxygen Flow Rate 0 11/14/19 22:55 Pain Level 1 11/14/19 22:55 Intake & Output 11/14/19 11/15/19 11/15/19 18:59 06:59 18:59 Intake Total 653.333 / 653.333 Balance 653.333 / 653.333 Intake: IV 653.333 / 653.333 Other: Urine Appearance Clear Voiding Methods Toilet Data Completed and Pending Labs on day of discharge: Labs from last 24 hours 11/15/19 11/14/19 06:40 06:25 Total Bilirubin Pending Conjugated Bilirubin Pending AST Pending ALT Pending 1240 H Alkaline Phosphatase Pending 178 H Total Protein Pending Albumin Pending [facility] Medical History Cardiac murmur (Inactive) Cholelithiasis (Resolved) GERD (gastroesophageal reflux disease) (Chronic) Metatarsalgia (Inactive) Tinnitus (Inactive) Surgical History S/P appendectomy (Acute) S/P colonoscopy (Acute) S/P ERCP (Acute) S/P laparoscopic cholecystectomy (Acute ~09/16/19) Family History Other Family history of colon cancer Social History Smoking/Tobacco Use Status: Never Alcohol Intake: current Alcohol Intake frequency: 3 or more drinks per day Alcohol type: wine Drug use: Never Current gender identity: male Do you feel safe at home: Yes Do you feel safe in your relationship?: Yes Documented by User: Alethea Ohara MD 11/15/19 08:49 Discharge Plan Disposition Patient Disposition: HOME Condition: Stable Discharge Details Chief Complaint: Abd Prob Clinical Impression: Common bile duct calculus Reason For Visit: CBD STONE Admit Date/Time: 11/11/19 15:46 Admit Provider: Alice Aguirre Attending Provider: Alice Aguirre Primary Care Provider: Gualberto Dorantes ED Provider: Ivan Verma Hospital Course Hospital Course: 53 y/o male presented to the ER on 11/11/19 for epigastric pain after eating. He is s/p Laproscopic Cholecystectomy in 08/2019. CT scan showed retained stone in the head of the pancreas/common bile duct. He was admitted as inpatient to surgical services for pain control and observation with scheduled ERCP at [facility] for 11/14/19. Over the weekend LFTs and Bilirubin were elevated. ERCP on 11/14/19 went well, and patient's abdominal pain improved significantly. LFTs and Bilirubin started trending down with this morning's labs. He was kept overnight to ensure he was tolerating a regular diet and that his pain was well managed. D/C home. Will schedule a follow up in 2 weeks. Home Meds and New Rx's Prescriptions: No Action No Known Home Meds RF: 0 Discharge Instructions Stand Alone Forms: Nursing Discharge Form Referrals: Gualberto Dorantes [Primary Care Provider] - 11/25/19 12:45 pm Activity:: Activity as Tolerated Equipment/Supplies:: No Equipment Needed Diet:: Low Fat [facility] Medical History Cardiac murmur (Inactive) Cholelithiasis (Resolved) GERD (gastroesophageal reflux disease) (Chronic) Metatarsalgia (Inactive) Tinnitus (Inactive) Surgical History S/P appendectomy (Acute) S/P colonoscopy (Acute) S/P ERCP (Acute) S/P laparoscopic cholecystectomy (Acute ~09/16/19) Family History Other Family history of colon cancer Social History Smoking/Tobacco Use Status: Never Alcohol Intake: current Alcohol Intake frequency: 3 or more drinks per day Alcohol type: wine Drug use: Never Current gender identity: male Do you feel safe at home: Yes Do you feel safe in your relationship?: Yes
[2019-11-15 07:15] LABS: ALT 879 U/L (16-63); AST 165 U/L (15-37); Albumin 3.5 g/dL (3.4-5.0); Alkaline Phosphatase 169 U/L (46-116); Bilirubin, Direct 0.44 mg/dL (0.00-0.20); Bilirubin, Total 1.1 mg/dL (0.2-1.0); Total Protein 7.1 g/dL (6.4-8.2)
--- NOTE | 2019-11-15 11:16 | PDOC.CMDIS ---
- If Service Date Differs Date of service: 11/15/19 Time of Service: 11:16 LACE Index Scoring Tool - Questions: Length of Stay (in days): 4 - 6 Acuity (Admit via E.D.?): Yes E.D. Visits: 1 - Answers: Total Score: 8 Risk of Readmission: Low Risk Care Management Discharge Reason for Hospitalization: Common Bile Duct Stone Discharge Plan: Suraj is being discharged home with no new services. He will follow up with his PCP and Dr. Aguirre, surgeon, as directed. Suraj is driving himself home via private vehicle. Patient/Family Education Needs: Nursing will review discharge instructions with Suraj re medications and follow-up appointments. Suraj is able to verbalize reason for hospitalization and how to manage care at home.
== END 2019-11-15 09:04 | disposition home or self-care (01) | DRG 395 ==
LOC: ER 14:59 → MS 16:26
PROVIDERS: Surgery; Admitting Provider Surgery; Emergency Provider Emergency Medicine; PCP Specialist/Technologist Athletic Trainer; Visit Provider Surgery
DX: K91.86 Retained cholelithiasis following cholecystectomy (principal); Y83.6 Removal of other organ (partial) (total) as the cause of abnormal reaction of the patient, or of later complication, without mention of misadventure at the time of the procedure; R10.13 Epigastric pain; K21.9 Gastro-esophageal reflux disease without esophagitis
CPT/HCPCS: 36415; 80053; 80076; 83690; 93005; 96374; 99222; 99232; 99233; 99238; 99285; 74177; 84484; 85025; 93010; 99283; A0425; A0426; J1885; J2405; J3490

== ENCOUNTER 2021-01-04 18:52 | Outpatient (REF) | payer MEDICAID, SELFPAY ==
[2021-01-04 14:52] LABS: ALT 30 U/L (16-63); AST 16 U/L (15-37); Albumin 3.9 g/dL (3.4-5.0); Alkaline Phosphatase 57 U/L (46-116); Anion Gap 10.4 mmol/L (3-11); BUN 15 mg/dL (7-18); Bilirubin, Total 0.7 mg/dL (0.2-1.0); CO2 24.6 mmol/L (21.0-32.0); CREATININE 0.9 mg/dL (0.70-1.30); Calcium 8.8 mg/dL (8.5-10.1); Calculated LDL 123 mg/dL (<100); Chloride 108 mmol/L (98-107); Cholesterol 178 mg/dL (<200); Glucose 96 mg/dL (74-106); HDL Cholesterol 46 mg/dL (40-60); Potassium 4.1 mmol/L (3.5-5.1); Sodium 143 mmol/L (136-145); Total Protein 7.3 g/dL (6.4-8.2); Triglyceride 47 mg/dL (<150)
== END 2021-01-04 18:53 | disposition home or self-care (01) ==
LOC: NCHCN 18:52
PROVIDERS: PCP Specialist/Technologist Athletic Trainer; Visit Provider Family Medicine
DX: L29.9 Pruritus, unspecified (principal); K64.9 Unspecified hemorrhoids; H93.13 Tinnitus, bilateral; Z00.00 Encounter for general adult medical examination without abnormal findings
CPT/HCPCS: 80053; 80061

== ENCOUNTER 2021-12-20 01:39 | Outpatient (CLI) | payer MEDICAID, SELFPAY ==
[2021-12-20 11:05] LABS: Source Nasal/Nares
[2021-12-20 13:51] LABS: COVID-19 PCR Negative (Negative)
== END 2021-12-20 01:40 | disposition home or self-care (01) ==
LOC: LBO 01:39
PROVIDERS: PCP Specialist/Technologist Athletic Trainer; Visit Provider Surgery
DX: Z20.822 Contact with and (suspected) exposure to COVID-19 (principal)
CPT/HCPCS: 87635

== ENCOUNTER 2023-05-06 12:27 | Outpatient (REF) | payer MEDICAID, SELFPAY ==
[2023-05-06 15:06] LABS: HCT 46.5 % (40.0-50.0); HGB 15.9 g/dL (13.5-17.5); MCH 31.2 pg (27.0-33.0); MCHC 34.2 % (32.0-36.0); MCV 91 fL (80-95); MPV 11.4 fL (8.0-11.0); Platelet Count 223 10^3/uL (130-400); RDW 12.6 % (11.8-14.1); RDW-SD 41.8 fL; WBC 6.72 10^3/uL (4.4-10.8)
[2023-05-06 15:25] LABS: ALT 40 U/L (16-63); AST 25 U/L (15-37); Albumin 4.3 g/dL (3.4-5.0); Alkaline Phosphatase 65 U/L (46-116); Anion Gap 7.2 mmol/L (3-11); BUN 16 mg/dL (7-18); Bilirubin, Total 0.9 mg/dL (0.2-1.0); CO2 29.8 mmol/L (21.0-32.0); CREATININE 1.1 mg/dL (0.70-1.30); Calcium 9.3 mg/dL (8.5-10.1); Chloride 106 mmol/L (98-107); Estimated GFR 79.28 (mL/min/1.73m2); Glucose 93 mg/dL (74-106); Potassium 4.8 mmol/L (3.5-5.1); Sodium 143 mmol/L (136-145); Total Protein 7.7 g/dL (6.4-8.2)
== END 2023-05-06 12:28 | disposition home or self-care (01) ==
LOC: NCHCN 12:27
PROVIDERS: PCP Specialist/Technologist Athletic Trainer; Visit Provider Family Medicine
DX: Z00.00 Encounter for general adult medical examination without abnormal findings (principal)
CPT/HCPCS: 80053; 85027

== ENCOUNTER 2023-06-11 15:10 | Outpatient (CLI) | payer MEDICAID, SELFPAY ==
--- NOTE | 2023-06-11 | DI.US_ITS ---
Exam(s) US LOWER EXTREMITY VENOUS RT EXAM: US LOWER EXTREMITY VENOUS RT CLINICAL HISTORY: RT KNEE PAIN M25.561 SWELLING RT LEG M79.89 SWELLING CALF ? DVT BAKERS CYST TECHNIQUE: Grayscale, color, and doppler imaging of the deep venous system of the RIGHT lower extrem ity was performed. COMPARISON: US US ABDOMEN from 09/21/2019 FINDINGS: There is no evidence of intraluminal thrombus and there is normal compression and augmentation demons trated within the common femoral vein, femoral vein, and popliteal vein. In the ipsilateral calf the interrogated veins also exhibit normal compression/ augmentation properti es. The ipsilateral saphenofemoral junction is patent. IMPRESSION: 1. No evidence of DVT in the RIGHT lower extremity. DATA REPOSITORY:
--- NOTE | 2023-06-11 | DI.RAD_ITS ---
Exam(s) XR KNEE RT 3V AP,LAT,EVELYN EXAM: XR KNEE RT 3V AP,LAT,EVELYN CLINICAL HISTORY: RT KNEE PAIN M25.561. TECHNIQUE: 2D digital imaging was performed. COMPARISON: No exams were available for comparison FINDINGS: 3 views no evidence of fracture nor prominent joint effusion. no joint space narrowing. bone density normal . no osseous lesions. IMPRESSION: NO SIGNIFICANT OSSEOUS FINDINGS DATA REPOSITORY: RADIATION DOSE DELIVERED:
== END 2023-06-11 15:30 ==
LOC: DI 15:10
PROVIDERS: PCP Specialist/Technologist Athletic Trainer; Visit Provider Physician Assistant Medical
DX: M25.561 Pain in right knee (principal); M79.661 Pain in right lower leg; M79.89 Other specified soft tissue disorders
CPT/HCPCS: 73562; 93971

== ENCOUNTER 2023-06-16 16:09 | Outpatient (REF) | payer MEDICAID, SELFPAY ==
[2023-06-17 10:58] LABS: Lyme Ab w Rflx to Lyme Confirm Negative (Negative)
== END 2023-06-16 16:10 | disposition home or self-care (01) ==
LOC: LBN 16:09
PROVIDERS: PCP Specialist/Technologist Athletic Trainer; Visit Provider Nurse Practitioner Family
DX: M25.461 Effusion, right knee (principal); M79.89 Other specified soft tissue disorders
CPT/HCPCS: 86618

== ENCOUNTER → 2023-07-28 01:30 | Outpatient (CLI) | payer MEDICAID, SELFPAY ==
--- NOTE | 2023-07-28 07:45 | DI.MRI_ITS ---
Exam(s) MR LOWER JOINT RT WO EXAM: MR LOWER JOINT RT WO CLINICAL HISTORY: pain, TEAR OF MEDIAL MENISCUS RT KNEE, S83.241A. TECHNIQUE: Multiplanar multisequence MRI was performed. COMPARISON: CR XR KNEE RT 3V AP,LAT,EVELYN from 06/11/2023 FINDINGS: The examination is limited due to patient motion artifact. BONES: No fractures identified. There is marrow edema seen in the proximal medial tibia. JOINTS: Articular cartilage is unremarkable. There is a small joint effusion. No loose body is ident ified. TENDONS: Extensor mechanism: Unremarkable. Medial retinaculum: Unremarkable. Lateral retinaculum: Unremarkable. Popliteus: Unremarkable. MUSCLES: Unremarkable. MENISCI: There may be some blunting along the free edge of the posterior horn of the medial meniscus (image 21). The lateral meniscus is unremarkable. SOFT TISSUES: There is edema seen in the soft tissues of the knee. There is a moderate sized poplite al cyst. LIGAMENTS: Anterior Cruciate: Unremarkable. Posterior Cruciate: Unremarkable. Medial Collateral:There is a small amount of fluid around the MCL which may represent a sprain. No t ear is seen. Lateral Collateral: Unremarkable. OTHER: IMPRESSION: 1. Some blunting of the long the free edge of the posterior horn of the medial meniscus which may rep resent a tear. 2. MCL sprain. 3. Popliteal cyst. Joint effusion. Subcutaneous edema. 4. Bone bruise involving the medial tibial plateau without evidence of a fracture. DATA REPOSITORY:
== END ==
PROVIDERS: PCP Family Medicine; Visit Provider Student in an Organized Health Care Education/Training Program
DX: S83.511A Sprain of anterior cruciate ligament of right knee, initial encounter; M71.21 Synovial cyst of popliteal space [Baker], right knee; M25.462 Effusion, left knee; X58.XXXA Exposure to other specified factors, initial encounter
CPT/HCPCS: 73721

== ENCOUNTER 2024-05-02 08:37 | Outpatient (REF) | payer MEDICAID, SELFPAY ==
[2024-05-02 15:53] LABS: HCT 49.1 % (40.0-50.0); MCH 30.6 pg (27.0-33.0); MCHC 32.6 % (32.0-36.0); MCV 94 fL (80-95); Platelet Count 227 10^3/uL (130-400); RBC 5.23 10^6/uL (4.36-5.78); RDW 13.2 % (11.8-14.1); RDW-SD 45.6 fL; WBC 6.12 10^3/uL (4.4-10.8)
[2024-05-02 16:49] LABS: ALT 40 U/L (16-63); AST 22 U/L (15-37); Albumin 4.4 g/dL (3.4-5.0); Alkaline Phosphatase 78 U/L (46-116); Anion Gap 9.8 mmol/L (3-11); BUN 16 mg/dL (7-18); Bilirubin, Total 0.9 mg/dL (0.2-1.0); CO2 28.2 mmol/L (21.0-32.0); Chloride 107 mmol/L (98-107); Estimated GFR 88.33 (mL/min/1.73m2); Glucose 103 mg/dL (74-106); Potassium 4.9 mmol/L (3.5-5.1); Sodium 145 mmol/L (136-145); Total Protein 7.6 g/dL (6.4-8.2)
[2024-05-02 17:14] LABS: Calculated LDL 109 mg/dL (<100); Cholesterol 188 mg/dL (<200); HDL Cholesterol 71 mg/dL (40-60); Triglyceride 43 mg/dL (<150)
== END 2024-05-02 08:38 | disposition home or self-care (01) ==
LOC: NCHCN 08:37
PROVIDERS: PCP Family Medicine; Visit Provider Family Medicine
DX: Z00.00 Encounter for general adult medical examination without abnormal findings (principal)
CPT/HCPCS: 80053; 80061; 85027

== ENCOUNTER 2024-05-12 12:35 | Outpatient (REF) | payer MEDICAID, SELFPAY ==
[2024-05-12 15:45] LABS: Calculated LDL 122 mg/dL (<100); Cholesterol 200 mg/dL (<200); HDL Cholesterol 72 mg/dL (40-60); Triglyceride 34 mg/dL (<150)
[2024-05-18 14:25] LABS: Testosterone, Free 8.25 ng/dL (3.87-14.7); Testosterone, Total 301 ng/dL (240-950)
== END 2024-05-12 12:36 | disposition home or self-care (01) ==
LOC: NCHCN 12:35
PROVIDERS: PCP Family Medicine; Visit Provider Family Medicine
DX: Z00.00 Encounter for general adult medical examination without abnormal findings (principal); R53.83 Other fatigue
CPT/HCPCS: 80061; 84402; 84403; 84443